=== PATIENT | female | born 1955 | race Caucasian/White ===

== ENCOUNTER 2024-03-24 13:14 | Inpatient (IN) | payer MEDICARE, SELFPAY ==
[2024-03-24] VITALS (61 sets, daily range): BP systolic 85–118; BP diastolic 37–64; PULSE 73–127; RESP 15–41; TEMP 36.2–36.9; O2SAT 90–97
--- NOTE | 2024-03-24 13:15 | RT.EKG_ITS ---
APPROVED REPORT Exam: Resting ECG Reason for Exam: SOB Patient Location: E HR:101 bpm ECG Measurements Heart Rate 101 AXIS VA 108 P 0 QRSd 98 QRS 81 QT 360 T 56 QTc 466 Conclusion Sinus tachycardia 101 No STEMI No interval abnormalities
[2024-03-24 13:50] LABS: BE (Venous) 11 mmol/L (-2-3); HCO3 (Venous) 35 mmol/L (23-28); O2 Sat (Venous) 68 %; TCO2 (Venous) 32 mmol/L (24-29); pCO2 (Venous) 52 mmHg (41-51); pH (Venous) 7.44 (7.31-7.41); pO2 (Venous) 35 mmHg
[2024-03-24 13:53] LABS: Lactate 3.2 mmol/L (0.6-1.4)
--- NOTE | 2024-03-24 13:53 | ED.GENADUL_ITS ---
Discharge Plan Disposition Patient Disposition: Admit to [facility] Condition: Stable Discharge Details Clinical Impression: Acute on chronic hypoxic respiratory failure, Acute kidney injury Primary Care Provider: Arelis Ventura ED Provider: Ilir Giullen [facility] General Date/Time Provider Initiated Documentation: 03/24/24 13:26 . HPI Narrative: 68 year-old female presents to ED today by POV/ambulating, sent [facility] by [facility] with a chief complaint of acute on chronic shortness of breath, low urine output- peed voluntarily this morning, but states she's been on diuretics- concerned about low output despite these meds with onset since this morning- had to increase her baseline oxygen to 4L by NC from her usual 2-3 NC, uses BiPaP at night. Had chemotherapy yesterday for her known oral cancer, reporting dry mouth. Quality described as generalized shortness of breath, denies flank pain, denies abdominal pain, no radiation to crushing chest pain, hemoptysis, fever, intractable nausea/vomiting, flank pain. Severity is described as moderate. Palliating factors include got 3L IVF with chemo yesterday. Provoking factors include nothing specific. 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 Related Data Allergies Allergy/AdvReac Type Severity Reaction Status Date / Time apixaban (From Eliquis) Allergy Intermediate Other (See Verified 03/24/24 13:26 Comment) Sulfa (Sulfonamide Allergy Mild Unknown Verified 03/24/24 13:26 Antibiotics) General Stated Complaint: SOB ADELINA: 3 Review of Systems All systems reviewed & are unremarkable except as noted in HPI and below Exam Narrative Exam Narrative: GENERAL APPEARANCE: Morbidly obese, toxic, awake and alert, atraumatic, mild acute distress. SKIN: Warm, pale, dry, intact, without rashes/lesions/ulcerations. HEAD: Normocephalic, atraumatic, normal hair distribution for gender/age. EYES: Normal conjunctiva, no exudates on lids/lashes. ENT: Nares patent, no circumoral cyanosis, no facial swelling, dry mouth, chapped lips NECK: Supple, trachea midline, painless cervical ROM. LUNGS/CHEST: Difficult auscultation due to body habitus, no wheezing, no rales heard at bases, labored respirations, normal A/P diameter, symmetrical expansion, no chest wall deformity HEART (CV/PV): Regular rate and rhythm without murmur, no peripheral edema, no JVD. ABDOMEN: Soft, non-distended, no guarding, no anterior abdominal tenderness, negative Miller's, no McBurney's point tenderness, non-peritoneal. MSK: Normal ROM, no swelling/deformity to bilateral UEs or LEs, moving all extremities without weakness, no cyanosis, spine midline without tenderness, normal curvature. NEURO: Mental Status AAOx4 - alert to person, place, time, events No facial droop, no forehead involvement. Motor: No focal weakness - strength 5/5 in bilateral UEs and LEs, proximal and distal, symmetric. Sensory: sensation intact to light touch globally. Gait NT, patient has difficulty transferring on her own from wheelchair to stretcher. PSYCH: euthymic, cooperative, pleasant, appropriate speech Course Vital Signs Vital signs: Vital Signs Temperature 36.4 C L 03/24/24 13:18 Pulse 104 H 03/24/24 13:18 Respiratory Rate 26 H 03/24/24 13:18 Blood Pressure 118/54 L 03/24/24 13:18 Pulse Oximetry 93 03/24/24 13:18 Temperature 36.4 C L 03/24/24 13:18 Temperature Source Temporal Artery Scan 03/24/24 13:18 Pulse 104 H 03/24/24 13:18 Respiratory Rate 26 H 03/24/24 13:18 Blood Pressure 118/54 L 03/24/24 13:18 Blood Pressure Position Sitting 03/24/24 13:18 Pulse Oximetry 93 03/24/24 13:18 Oxygen Delivery Method Nasal Cannula 03/24/24 13:18 Oxygen Flow Rate 4 03/24/24 13:18 Lab/Test Results Lab/Test Results: 03/24/24 13:44 Blood Blood Culture - Pending 03/24/24 13:32 Blood Blood Culture - Pending Medical Decision Making This dictation utilizes [id number] dictation software and may contain unedited grammatical errors. 68 year-old female presents to ED today by POV/ambulating, sent for eval by [facility] with a chief complaint of acute on chronic shortness of breath, low urine output- peed voluntarily this morning, but states she's been on diuretics- concerned about low output despite these meds with onset since this morning- had to increase her baseline oxygen to 4L by NC from her usual 2-3 NC, uses BiPaP at night. Had chemotherapy yesterday for her known oral cancer, reporting dry mouth. Quality described as generalized shortness of breath, denies flank pain, denies abdominal pain, no radiation to crushing chest pain, hemoptysis, fever, intractable nausea/vomiting, flank pain. Severity is described as moderate. Palliating factors include got 3L IVF with chemo yesterday. Provoking factors include nothing specific. 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 Patients' medical history: Oral cancer, denies COPD, HOLDEN, morbid obesity, malignant neoplasm of tongue. Family and social history: Lives independently, no exercise regimen, no recent travel, no sick contacts. Pertinent exam findings / vital signs include morbid obesity with no overt wheezing to the lungs, benign cardiac exam, mildly hypotense 91/50-MAP okay, benign abdomen. Differential / pathologies of concern include UTI, dehydration, MEY, renal stone, hypoxic respiratory failure, pneumonia, sepsis. Diagnostic studies of: -CBC, CMP, lactate, UA, PT/PTT, blood cultures, magnesium, troponin, BNP, EKG, XR chest portable, CTA chest PE study (held due to GFR). -CBC shows mild increase in absolute neutrophils at 8.32, immunosuppressed -CMP shows hyponatremia of 133, mildly low hypochloremia at 93, shows significant increase in BUN to 62 with a creatinine of 2.6, yesterday had labs drawn with creatinine of 1.3 -Magnesium within normal limits -Mild increase in LFTs and bilirubin likely in the setting of dehydration -Markedly low albumin at 2.7 -Troponin negative -Lipase negative -Initial lactate is 3.2, procalcitonin pending at time of admission -VBG shows chronic compensated respiratory alkalosis with mildly increased pCO2 at 52, do not suspect need for BiPAP at this time -UA pending and Mulligan is inserted, patient voided earlier today and has 120 mL in the bladder -XR shows possible infiltrate vs edema, running fluids slowly out of caution for flash pulmonary edema -EKG without ischemic dynamic changes Interventions of: -IVF NS @ 150mL / hr, IV Ceftriaxone and azithro for empiric PNA/sepsis coverage in the setting of likely type 2 lactic acidosis, May need PE ruleout once GFR improves with fluids due to active oral cancer. -Admit to Hospitalist Dr. Koo @ 7136 ED Course/Assessment/Plan: Morbidly obese 68-year-old female presents with acute on chronic respiratory failure, immune suppressed with a mild elevation of absolute neutrophil count and elevated lactate for possible sepsis/suspected possible pneumonia versus UTI, patient received chemo yesterday and 3 L of fluid but has been on diuretics, has MEY with a creatinine from 1.3-2.6 today, chest x-ray shows some infiltrate versus edema running fluids slowly instead of on sepsis bolus protocol to prevent any further respiratory complications from flash pulmonary edema. He her fluid balance and MEY would likely resolve but will take some time warranting admission for acute kidney injury, she does use BiPAP at night. Received IV ceftriaxone and azithromycin for empiric pneumonia coverage, may need a CTA of the chest as she is tachycardic at this time but has a GFR that prevents contrast administration currently this would likely improve tomorrow. I spoke with Dr. Koo about admitting the patient who accepted for admission graciously. Findings not consistent with ACS, severe sepsis with septic shock. Disposition of Acute on Chronic Hypoxic Respiratory Failure, Acute Kidney Injury. Patient verbalized understanding of the plan and return to ED criteria and engaged in shared decision making. Medical Records Medical records reviewed: Yes I reviewed the patient's medical records. Imaging Data Radiologic Study: Attestation: I personally reviewed and interpreted this imaging study as follows: Imaging: X-Ray My impression: Pending at time of admission Lab Data Lab results reviewed: Yes I reviewed the patient's lab results. Labs: 03/24/24 14:07 Blood Blood Culture - Pending 03/24/24 13:44 Blood Blood Culture - Pending Laboratory Tests Range/Units 03/24/24 13:44 WBC (4.4-10.8) 10^3/uL 8.95 RBC (3.93-5.22) 10^6/uL 4.01 Hgb (11.2-15.7) g/dL 12.4 Hct (36.0-46.0) % 39.5 MCV (80-95) fL 99 H MCH (27.0-33.0) pg 30.9 MCHC (32.0-36.0) % 31.4 L RDW (11.7-14.6) % 15.3 H Plt Count (130-400) 10^3/uL 130 MPV (8.0-11.0) fL 10.6 Immature Gran % % 1.0 Neutrophils % % 93.0 Lymphocytes % % 0.6 Monocytes % % 3.9 Eosinophils % % 1.3 Basophils % % 0.2 Nucleated RBC % (0.0-0.3) % 0.0 Absolute Neutrophils (1.2-6.7) 10^3/uL 8.32 H Absolute Lymphocytes (1.2-3.4) 10^3/uL 0.05 L Absolute Monocytes (0.1-0.8) 10^3/uL 0.35 Absolute Eosinophils (0.0-0.7) 10^3/uL 0.12 Absolute Basophils (0.0-0.2) 10^3/uL 0.02 VBG pH (7.31-7.41) 7.44 H VBG pCO2 (41-51) mmHg 52 H VBG pO2 mmHg 35 VBG HCO3 (23-28) mmol/L 35 H VBG Total CO2 (24-29) mmol/L 32 H VBG O2 Saturation % 68 VBG Base Excess (-2-3) mmol/L 11 H VBG Lactate (0.6-1.4) mmol/L 3.2 H* Sodium (136-145) mmol/L 133 L Potassium (3.5-5.1) mmol/L 4.6 D Chloride (98-107) mmol/L 93 L Carbon Dioxide (21.0-32.0) mmol/L 33.0 H Anion Gap (3-11) mmol/L 7.0 BUN (7-18) mg/dL 62 H Creatinine (0.55-1.02) mg/dL 2.6 H D Est GFR (CKD-EPI 2020) (mL/min/1.73m2) 19.50 Glucose (74-106) mg/dL 129 H Calcium (8.5-10.1) mg/dL 8.7 Magnesium (1.8-2.4) mg/dL 2.4 Total Bilirubin (0.2-1.0) mg/dL 2.01 H AST (15-37) U/L 68 H ALT (14-59) U/L 68 H Alkaline Phosphatase (46-116) U/L 46 Troponin I (<or=51) ng/L 45 Total Protein (6.4-8.2) g/dL 7.1 Albumin (3.4-5.0) g/dL 2.7 L Lipase (<78) U/L 50 Quality:[facility] Health Related Social Needs: No Data to Display PFSH All Active Problems (Updated 03/24/24 @ 14:53 by AISSATOU Mcgowan) Acute kidney injury (Acute) Acute on chronic hypoxic respiratory failure (Acute) Social History Smoking/Tobacco Use Status: Never Smoking risk assessment performed?: Yes Alcohol Intake: never Drug use: Never Substance use type: does not use
[2024-03-24 13:54] LABS: Abs Immature Grans 0.09 10^3/uL (0.0-0.06); Absolute Basophil Count 0.02 10^3/uL (0.0-0.2); Absolute Eosinophil Count 0.12 10^3/uL (0.0-0.7); Absolute Lymphocyte Count 0.05 10^3/uL (1.2-3.4); Absolute Monocyte Count 0.35 10^3/uL (0.1-0.8); Absolute Neutrophil Count 8.32 10^3/uL (1.2-6.7); Basophils % 0.2 %; Eosinophils % 1.3 %; HCT 39.5 % (36.0-46.0); HGB 12.4 g/dL (11.2-15.7); Lymphocytes % 0.6 %; MCH 30.9 pg (27.0-33.0); MCHC 31.4 % (32.0-36.0); MCV 99 fL (80-95); MPV 10.6 fL (8.0-11.0); Monocytes % 3.9 %; Platelet Count 130 10^3/uL (130-400); RBC 4.01 10^6/uL (3.93-5.22); RDW 15.3 % (11.7-14.6); RDW-SD 55.8 fL; WBC 8.95 10^3/uL (4.4-10.8)
[2024-03-24 14:11] LABS: ALT 68 U/L (14-59); AST 68 U/L (15-37); Albumin 2.7 g/dL (3.4-5.0); Alkaline Phosphatase 46 U/L (46-116); BUN 62 mg/dL (7-18); Bilirubin, Total 2.01 mg/dL (0.2-1.0); CREATININE 2.6 mg/dL (0.55-1.02); Calcium 8.7 mg/dL (8.5-10.1); Chloride 93 mmol/L (98-107); Glucose 129 mg/dL (74-106); Lipase 50 U/L (<78); Magnesium 2.4 mg/dL (1.8-2.4); Potassium 4.6 mmol/L (3.5-5.1); Sodium 133 mmol/L (136-145); Total Protein 7.1 g/dL (6.4-8.2); Troponin I 45 ng/L (<or=51)
--- NOTE | 2024-03-24 14:30 | DI.RAD_ITS ---
Exam(s) XR PORTABLE CHEST AP EXAM: XR PORTABLE CHEST AP CLINICAL HISTORY: cough TECHNIQUE: 2D digital imaging was performed. COMPARISON: No exams were available for comparison FINDINGS: Exam is extremely limited by motion and under penetration. Abdominal soft tissues partially obscure the lung bases. LUNGS: Clear. No pleural abnormality seen. HEART: Partially obscured AORTA: Normal diameter. BONES: Unremarkable for age. Soft tissues: Overlying monitoring leads. IMPRESSION: Extremely limited exam. No gross evidence acute findings. DATA REPOSITORY: RADIATION DOSE DELIVERED:
[2024-03-24 14:57] LABS: COVID-19 PCR Negative (Negative); Influenza A PCR Negative (Negative); Influenza B PCR Negative (Negative); RSV PCR Negative (Negative)
[2024-03-24] MEDS: AZITHROMYCIN 500 MG in Normal Saline 250 ML 250 MG IVPB (15:02)
[2024-03-24] MEDS: Lidocaine 2% Jelly 6 ML SYR (15:03)
[2024-03-24] MEDS: cefTRIAXone 1 GM/50 ML BAG IVPB (15:03)
--- OUTSIDE RECORDS SUMMARY | 2024-03-24 15:04 | XMS_ITS | Referral Summary ---
Author Organization [facility] Address [address] [place] [id number] Care Team Providers Care Mortician Helper Name Role Phone Stacey Cuellar Primary Care Provider Social History Tobacco Use Types Packs/Day Years Used Date Smoking Tobacco: Never Assessed Comments Unknown Sex and Gender Information Value Date Recorded Sex Assigned at Not on file Legal Sex Female 18:48 EST Gender Identity Not on file Sexual Orientation Not on file Plan of Treatment Not on file Insurance [employer] Care Teams Mortician Helper Relationship Specialty Start Date End Date Stacey Cuellar ARNP [address] [place] [address] PCP - General 10/19/15
--- OUTSIDE RECORDS SUMMARY | 2024-03-24 15:04 | XMS_ITS | Encounter Summary ---
Author Organization [facility] Address [address] [place] [address] Care Team Providers Care Casing Puller Name Role Phone Unknown, Provider Primary Care Provider Unava ilable Encounter Details Date Type Department Care Team (Late st Contact Info) Description 03/01/2010 Results Only [facility] [address] [place] [address] Ari Cuellar ARNP [address] [place] [address] Social History Tobacco Use Types Packs/Day Years Used Date Smoking Tobacco: Never Assessed Comments Unknown Sex and Gender Information Value Date Recorded Sex Assigned at Not on file Legal Sex Female 18:48 EST Gender Identity Not on file Sexual Orientation Not on file documented as of this encounter Plan of Treatment Not on file documented as of this encounter Procedures Procedure Name Priority Date/Time Associated Diagnosis Comments SURGICAL PATHOLOGY Routine 03/01/2010 0:00 EST documented in this encounter Results * SURGICAL PATHOLOGY (03/01/2010 0:00 EST) Pathology Report: SURGICAL PATHOLOGY REPORT ? Reports generated via electronic interface contain original data; ? however they are lacking the format of the original report. ? Caution should be taken when reading/interpreti ng unformatted reports. ? Name: ? ISAIAS, PENNY A ? Accession #: ? [id number] ? : ? 1955 (Age: 54) ??F ? Collect Date: ? 03/01/2010 ? Location: ? [facility] ? Receive Date: ? 03/03/2010 ? Provider: ARI KELLER ? Copy to: ? Final Pathologic Diagnosis: ? Skin of thumb, right, shave biopsy: ? - Pyogenic granuloma. ? Microscopic Description: ? There is a papule formed by a dermal proliferation of vascular channels ? associated with an edematous and inflamed stroma. ??The vessels are lined by ? hypertrophic endothelial cells and there is mural swelling. ??The overlying ? epidermis is ulcerated. ??(Dr. Fu)/[facility] ? Document reviewed and electronically signed by: ? WAQAS FU MD ? Report ??Date: 03/06/2010 13:47 ? By the signature above, the attending physician certifies that he/she has ? personally conducted a gross and/or microscopic examination of the described ? specimens and rendered or confirmed the above diagnosis. ? Specimen(s) Received: ? Right thumb growth ? Clinical History: ? R/O pyogenic granuloma ? Gross Description: ? Received in formalin labelled Courteau, Penny and R thumb is an ? irregular, slightly ragged mccarthy-brown nodule measuring 0.7 x 0.6 x 0.3 cm. ??The ?? specimen is trisected and submitted entirely in one cassette. ? (A. Cramer)/mpl ? End of Report ? ANGELICA CISSE 03/01/2010 03/03/2010 9:5 2 EST us Ari KELLER PATHOLOGY ORDERABLES Final Result [facility] [address] [place] [address] documented in this encounter Visit Diagnoses Not on filedocumented in this encounter Care Teams Casing Puller Relationship Specialty Start Date End Date Unknown, Provider, PCP - General 07/05/09 10/18/15 documented as of this encounter
--- OUTSIDE RECORDS SUMMARY | 2024-03-24 15:04 | XMS_ITS | Encounter Summary ---
Author Organization Health system Address [address] [place] [address] Care Team Providers Care Missing Persons Investigator Name Role Phone Unknown, Provider Primary Care Provider Unava ilable Encounter Details Date Type Department Care Team (Late st Contact Info) Description 10/13/2015 Results Only [facility]- [facility] [phone] Petar Clark MD [address] [facility] [address] [place] [address] Social History Tobacco Use Types Packs/Day Years [...] Date/Time Associated Diagnosis Comments SURGICAL PATHOLOGY Routine 10/13/2015 10 :38 EDT documented in this encounter Results * SURGICAL PATHOLOGY (10/13/2015 10:38 EDT) Pathology Report: SURGICAL PATHOLOGY REPORT Reports generated via electronic interface contain original data; however they are lacking the format of the original report. Caution should be taken when reading/interpret ing unformatted reports. Name: ? REY RUSSO ? Accession #: ? [id number] ? : ? 1955 (Age: 60) ??F ? Collect Date: ? 10/13/2015 ? Location: ? [facility] ? Receive Date: ? 10/15/2015 ? Provider: ANDREA CLARK MD Copy to: ARI PATHAKP ? Final Pathologic Diagnosis: A. ??DUODENUM, 2ND PORTION, BIOPSY: - Duodenal mucosa with no specific pathologic features. B. ??STOMACH, ANTRUM AND BODY, BIOPSY: - Gastric antral and body mucosa with no specific pathologic features. C. ??ESOPHAGUS, DISTAL, BIOPSY: - Squamocolumnar junctional mucosa with reflux esophagitis. - Negative for intestinal metaplasia; Negative for dysplasia. D. ??COLON, ASCENDING, POLYP, BIOPSY: - Inflammatory polyp (polypoid active colitis) with surface erosion. - Negative for dysplasia. ?? Document reviewed and electronically signed by: XU MAYERS MD Report ??Date: 10/18/2015 16:36 By the signature above, the attending physician certifies that he/she has personally conducted a gross and/or microscopic examination of the described specimens and rendered or confirmed the above diagnosis. Specimen(s) Received: A. ??2nd portion duodenum B. ??Antrum and body C. ??Distal esophagus D. ??5.0 mm polyp ascending Clinical History: Gastritis, esophagitis; clinical diagnosis code: ??Z12.11, D50.0 Gross Description: A. ?Received in formalin labelled with proper patient identification (initials C, J) and A. 2nd portion duodenum are two mccarthy-yellow tissues (0.2 x 0.2 x 0.3 cm and 0.2 x 0.2 x 0.3 cm). Entirely submitted in A1. B. ?Received in formalin labelled with proper patient identification (initials C, J) and B. antrum and body are four mccarthy-yellow tissues (from 0.1 x 0.1 x 0.1 cm to 0.1 x 0.1 x 0.3 cm). Entirely submitted in B1 and B2. C. ?Received in formalin labelled with proper patient identification (initials C, J) and C. distal esophagus are two mccarthy-white tissues (0.1 x 0.2 x 0.3 cm and 0.1 x 0.2 x 0.5 cm). Entirely submitted in C1. D. ?Received in formalin labelled with proper patient identification (initials C, J) and D. 5.0 mm polyp ascending are three mccarthy-yellow tissues (0.1 x 0.2 x 0.2 cm, 0.2 x 0.2 x 0.2 cm and 0.3 x 0.3 x 0.5 cm). The largest piece is bisected. Entirely submitted in D1 and D2. Pebbles Wilkins 10/17/2015 12:10 PM End of Report [facility] 10/13/2015 10:3 8 EDT 10/15/2015 10:38 EDT us Petar Clark MD PATHOLOGY ORDERABLES Final Resul t [facility] [address] [place] [address] documented in this encounter Visit Diagnoses Not on filedocumented in this encounter Care Teams Missing Persons Investigator Relationship Specialty Start Date End Date Unknown, Provider, PCP - General 07/05/09 10/18/15 documented as of this encounter
--- OUTSIDE RECORDS SUMMARY | 2024-03-24 15:04 | XMS_ITS | Encounter Summary ---
Author Organization [facility] Address [address] [place] [address] Care Team Providers Care Group Insurance Special Agent Name Role Phone Ari Cuellar ARIANNA Primary Care Provider Encounter Details Date Type Department Care Team (Late st Contact Info) Description 03/01/2016 Results Only [facility]- [facility] [phone] Josep Saenz MD [address] [place], [place] [id number] Social History Tobacco Use Types Packs/Day Years [...] Date/Time Associated Diagnosis Comments SURGICAL PATHOLOGY Routine 03/01/2016 21 :53 EST documented in this encounter Results * SURGICAL PATHOLOGY (03/01/2016 21:53 EST) Pathology Report: SURGICAL PATHOLOGY REPORT Reports generated via electronic interface contain original data; however they are lacking the format of the original report. Caution should be taken when reading/interpreting unformatted reports. Name: ? FLETCHER RUSSO ? Accession #: ? [id number] ? : ? 1955 (Age: 60) ??F ? Collect Date: ? 03/01/2016 ? Location: ? [facility] ? Receive Date: ? 03/01/2016 ? Provider: JOSEP SAENZ MD Copy to: ARI KELLER ? Final Pathologic Diagnosis: ENDOMETRIUM, CURETTTAGE: - ??Simple hyperplasia without atypia. See comment. - ??Endocervical polyp. Comment: ? Marine Designer slides of this case were reviewed at the intradepartmental consultation conference. ?? Document reviewed and electronically signed by: KATIE MORRIS MD Report ??Date: 03/06/2016 17:00 By the signature above, the attending physician certifies that he/she has personally conducted a gross and/or microscopic examination of the described specimens and rendered or confirmed the above diagnosis. Specimen(s) Received: Endometrial curettings Clinical History: Postmenopausal bleeding; LMP: menopause; clinical diagnosis code: N95.0 Gross Description: ? Received in formalin labelled with proper patient identification (initials C, J) and endometrial curettings is red-brown hemorrhage and mucus (3.0 x 2.0 x 0.5 cm). The specimen is submitted entirely in 1 and 2. AISSATOU Ozuna (ASCP) 03/02/2016 11:16 AM End of Report [facility] 03/01/2016 21:5 3 EST 03/01/2016 21:53 EST us Josep Saenz MD PATHOLOGY ORDERABLES Final Resu lt [facility] [address] [place] [address] documented in this encounter Visit Diagnoses Not on filedocumented in this encounter Care Teams Group Insurance Special Agent Relationship Specialty Start Date End Date Ari Cuellar ARNP [address] [place] [address] PCP - General 10/19/15 documented as of this encounter
--- OUTSIDE RECORDS SUMMARY | 2024-03-24 15:04 | XMS_ITS | Encounter Summary ---
Author Organization [facility] Address [address] [place] [address] Care Team Providers Care Trauma Program Manager Name Role Phone Stacey Cuellar Primary Care Provider Encounter Details Date Type Department Care Team (Late st Contact Info) Description 11/13/2023 Lab Requisition [facility] Pathology & Laboratory Medicine - [facility] [address] [place] [address] Morales Choudhary, [address] [place] [address] Other diseases of tongue Social History Tobacco Use Types Packs/Day Years [...] Priority Date/Time Associated Diagnosis Comments SURGICAL PATHOLOGY Today 11/12/2023 10 :40 EDT Other diseases of tongue documented in this encounter Results * SURGICAL PATHOLOGY (11/12/2023 10:40 EDT) Note to Patient The following pathology results have been interpreted by your pathologist and may be available to you before your health provider has had the opportunity to review them. Please allow time for your provider to receive these results and explore management options, if applicable. 11/15/2023 9:50 EDT [facility] Final Diagnosis A. TONGUE, RIGHT POSTERIOR LATERAL INFERIOR, BIOPSY: - Invasive squamous cell carcinoma, well-differentiate d, keratinizing type. B. TONGUE, RIGHT POSTERIOR LATERAL TONGUE SUPERIOR, BIOPSY: - Invasive squamous cell carcinoma, well-differentiate d, keratinizing type. - Depth of invasion at least 5.0 mm 11/15/2023 9:50 [facility] Diagnosis Comment Preliminary diagnosis of squamous cell carcinoma with morphology that is not suggestive of HPV-associated squamous cell carcinoma relayed to Eula Owusu, Dr. Choudhary's diagnostic medical sonographer, by Dr. Gómez De Los Santos on 11/14/23 09:26. Immunoperoxidase stains were performed on this case to further characterize the lesion. ANTIBODY(CLONE)(BL OCK):RESULT P16 (E6H4TM, [place]) (B1): Negative NOTE: One or more of the reagents used in immunoperoxidase testing in this case may not have been cleared or approved by the U.S. Food and Drug Administration (FDA). The FDA has determined that such clearance or approval is not necessary. These tests are used for clinical purposes. They should not be regarded as investigational or for research. These reagents' performance characteristics have been determined by [facility] and/or by the referring laboratory. The positive and negative controls worked appropriately. If immunoperoxidase staining has been performed on alcohol fixed cytology specimens, which has not been fully validated, the assays should be interpreted with caution and correlated with clinical data. This laboratory is certified under the Clinical Laboratory Improvement Amendments of 1988 (CLIA-88) as qualified to perform high complexity clinical laboratory testing. 11/15/2023 9:50 [facility] Attestation There was significant resident/fellow involvement in the diagnostic evaluation of this case. By the signature below, the attending physician certifies that they have personally conducted a gross and/or microscopic examination of the described specimens and rendered or confirmed the above diagnosis. 11/15/2023 9:50 [facility] at 0950 Clinical History Clinical diagnosis code: K14.8 11/15/2023 9:50 [facility] Gross Description A. Received in normal formalin labelled with proper patient identification (initials C, J) and right posterior lateral tongue inferior are three pieces of mccarthy-andrade rubbery tissue (ranges from 0.1 x 0.1 x 0.1 cm to 0.4 x 0.3 x 0.1 cm). The specimen entirely submitted intact in A1. B. Received in formalin labelled with proper patient identification (initials C, J) and right posterior lateral tongue superior multiple pieces of mccarthy-pink rubbery tissue (ranges from 0.1 x 0.1 x 0.1 cm to 0.4 x 0.3 x 0.2 cm). The specimen entirely submitted intact in B1. ALENA LUCAS MD 11/13/2023 17:10 11/15/2023 9:50 EDT [facility] Resident/Roque w: Alena Lucas MD Boles, Lindsey Jones MD 11/15/2023 9:50 EDT [facility] Performing Lab [facility] 9:50 EDT [facility] Scanned Images 11/15/2023 9:50 EDT [facility] Tissue TONGUE STRUCTURE / Unknown 11/12/2023 10:40 EDT 11/13/2023 16:57 EDT Tissue specimen (specimen) TONGUE STRUCTURE / Unknown 11/12/2023 10:40 EDT 11/13/2023 16:57 EDT us Morales Choudhary DO PATHOLOGY ORDERABLES Fi nal Result [facility] [address] [place] [id number] documented in this encounter Visit Diagnoses Diagnosis Other diseases of tongue documented in this encounter Care Teams Trauma Program Manager Relationship Specialty Start Date End Date Stacey Cuellar ARNP [address] [place] [address] PCP - General 10/19/15 documented as of this encounter
--- OUTSIDE RECORDS SUMMARY | 2024-03-24 15:04 | XMS_ITS | Encounter Summary ---
Author Organization [facility] Address [address] [place] [address] Care Team Providers Care Delivery And Mail Sorter Name Role Phone Unknown, Provider Primary Care Provider Unava ilable Encounter Details Date Type Department Care Team (Late st Contact Info) Description 06/30/2009 Results Only [facility] Services - [facility] [place] [address] [place], [place] [id number] Ari Cuellar ARNP [address] [place] [address] Social History Tobacco Use Types [...] Procedure Name Priority Date/Time Associated Diagnosis Comments HPV DETECTION, HIGH RISK TYPES Routine 06/30/2009 8:42 EDT CYTOPATHOLOGY Routine 06/30/2009 0:00 EDT documented in this encounter Results * HUMAN PAPILLOMA VIRUS DNA TEST (06/30/2009 8:42 EDT) Specimen Description Cervix, ThinPrep vial [facility] Result Negative for HPV types 16, 18, 31, 33, 35, 39, 45, 51, 52, 56, 58, 59, and 68. [facility] Report Status Final 07/14/2009 [facility] 06/30/2009 8:42 EDT 07/12/2009 8:42 EDT us Ari KELLER MICROBIOLOGY - GENERAL GERIAdi SANCHEZ Final Result [facility] [address] [place] [address] * CYTOPATHOLOGY (06/30/2009 0:00 EDT) Pathology Report: CYTOPATHOLOGY REPORT ? Reports generated via electronic interface contain original data; ? however they are lacking the format of the original report. ? Caution should be taken when reading/interpreti ng unformatted reports. ? Name: ? REY RUSSO ? Accession #: ? [id number] ? : ? 1955 (Age: 53) ??F ?Collect Date: ? 06/30/2009 ? Location: ? [facility] ? Receive Date: ? 07/05/2009 ? Provider: ?ARI FISCHLER BEATER ENGINEER ? Copy to: ? Specimen/Source: ?Pap Test, Cervix/Endocervix, ThinPrep Imaging System ? with manual evaluation ? Last Menstrual Period: ? 2002 ? Other: ? HPVDX - HPV testing requested regardless of diagnosis on current ThinPrep Pap ?? test. ? SPECIMEN ADEQUACY ? Satisfactory for Evaluation ? - transformation zone component absent ? GENERAL CATEGORIZATION ? Negative for Intraepithelial Lesion or Malignancy ? Document reviewed and electronically signed by: ? Lynan Murtaza, CT(ASCP) ? Report Date: ??07/11/2009 16:05 ? End of Report ? [facility] 06/30/2009 07/05/2009 Ari KELLER PATHOLOGY ORDERABLES Final Result [facility] [address] [place] [address] documented in this encounter Visit Diagnoses Not on filedocumented in this encounter Care Teams Delivery And Mail Sorter Relationship Specialty Start Date End Date Unknown, Provider, PCP - General 07/05/09 10/18/15 documented as of this encounter
--- OUTSIDE RECORDS SUMMARY | 2024-03-24 15:04 | XMS_ITS | Encounter Summary ---
Author Organization [facility] Address [address] [place] [address] Care Team Providers Care Flower Arranger Name Role Phone Unknown, Provider Primary Care Provider Unava ilable Encounter Details Date Type Department Care Team (Latest Contact Info) Description 10/13/2015 8:41 EDT - 10/13/2015 23:59 EDT Hospital Encounter [address] [address] Unknown, Provider, Discharge Disposition: Home or Self Care Social History Tobacco Use Types Packs/Day Years Used Date Smoking Tobacco: Never Assessed Comments Unknown Sex and Gender Information Value Date Recorded Sex Assigned at Not on file Legal Sex Female 18:48 EST Gender Identity Not on file Sexual Orientation Not on file documented as of this encounter Discharge Disposition Disposition Code Departure Means Destination Home or Self Mcfp documented in this encounter Plan of Treatment Not on file documented as of this encounter Visit Diagnoses Not on filedocumented in this encounter Care Teams Flower Arranger Relationship Specialty Start Date End Date Unknown, Provider, PCP - General 07/05/09 10/18/15 documented as of this encounter
--- OUTSIDE RECORDS SUMMARY | 2024-03-24 15:04 | XMS_ITS | Clinical Summary ---
Author Organization [facility] Address [address] [place] [id number] Care Team Providers Care Java Mobile Developer Name Role Phone Stacey Cuellar Primary Care Provider Social History Tobacco Use Types Packs/Day Years Used Date Smoking Tobacco: Never Assessed Comments Unknown Sex and Gender Information Value Date Recorded Sex Assigned at Not on file Legal Sex Female 18:48 EST Gender Identity Not on file Sexual Orientation Not on file Plan of Treatment Health Maintenance Due Date Last Done Comments Hepatitis C Screen 1955 Fall Risk Screening 07/20/2020 COVID-19 Vaccine (2023-25 season) 2023 RSV Immunization ( o r 60+ Years) (1 - 1-dose 75+ series) 07/20/2030 Insurance [place] [employer] Care Teams Java Mobile Developer Relationship Specialty Start Date End Date Stacey Cuellar ARNP [address] [place] [id number] PCP - General 10/19/15
[2024-03-24 15:06] LABS: Source Nasopharynx
--- NOTE | 2024-03-24 15:12 | W.PM.HP.N ---
Date of service: 03/24/24 Time of Service: 16:50 Assessment and Plan Assessment and plan (1) Anuria: Status: Acute Assessment and plan: -Based on patient's estimate of urine output of 50 cc earlier in the day, an additional 20 cc in the emergency department, it is estimated that she has had >0.1cc/kg/hr of urine output over the last 12 hours which categorizes her as an uric kidney failure -Normal saline that was ordered by emergency room provider has been discontinued and not given -Ordered 120 mg IV Lasix; will monitor patient's urine output very closely -Will recalculate patient's cc/kg/hr 3 hours after Lasix is given -Depending on total urine output and cc/kg/hr and total urine output at that time, will reach out to [facility] for other consultation with nephrology on guidance for additional diuresis, or consideration potential transfer and need for dialysis -Additionally, will also reach out earlier to [facility] should patient's respiratory status worsen regardless of urine output (2) Acute on chronic hypoxic respiratory failure: Status: Acute Assessment and plan: -Secondary to anuria as noted above (3) Acute kidney injury superimposed on CKD: Status: Acute Assessment and plan: - Secondary to anuria as noted above (4) Head and neck cancer: Status: Acute Assessment and plan: - At this time, unknown if patient's chemo/radiation therapy has had a direct effect on patient's kidneys, or has resulted in new or worsening heart failure resulting in kidney failure -After acute hospitalization, patient will need to have discussion with her oncologist regarding chemotherapy regimen going forward (5) Lactic acid acidosis: Status: Acute Assessment and plan: - Lactic acid 3.2, Likely secondary to combination of anuria, and chemotherapy as noted above (6) Elevated LFTs: Status: Acute Assessment and plan: - May be secondary to some combination of other hepatic congestion and/or chemotherapy -Total bili 2 (was 1.524 hours prior), AST and ALT also elevated as compared to 24 hours prior History of Present Illness History of Present Illness Chief Complaint: shortness of breath Narrative: 68-year-old female with a past medical history of lower extremity pressure ulcers, morbid obesity, chronic hypoxic respiratory failure normally on 2 to 3 L nasal cannula, active head and neck cancer for which she is receiving chemotherapy and radiation who presents to the emergency department complaints of shortness of breath and decreased urine output. Patient presented to the emergency department as she stated that she has had increased shortness of breath and increased oxygen requirement over the last few days. She states she is normally on 2 to 3 L nasal cannula that she had to increase to 4 L. Additionally, she states that despite having increased her diuretic use of her Bumex she urinated only once earlier in the day about 50 cc and has not urinated since. She is also complaining of increased shortness of breath when laying flat, requiring her to lay in a reclined position, and episodes of pursed lip breathing and shortness of breath at rest. She denies any fevers, lightheadedness, dizziness, chest pain, nausea vomiting or diarrhea. In the emergency department the patient was noted as having blood pressures in the high 90s to low 100s systolics, heart rate in the mid 80s, respiratory rate in the low 20s, was saturating 93% on 4 L nasal cannula. Upon physical exam patient looked significantly fluid overloaded with worsening bilateral lower extremity weeping edema, and diminished breath sounds with crackles throughout. Her CBC was unremarkable and without leukocytosis, but her be MP did show creatinine of 2.6 (increased from 24 hours prior which was 1.3, as well as an increase in BUN up to 62, increase of total bili from 1.5-2, and a proBNP of 6635. Despite the information from the patient and objective laboratory evidence and patient's physical exam, emergency room PA thought patient was having an acute kidney injury and pneumonia (despite no chest x-ray having been ordered at the time), and ordered ceftriaxone, azithromycin and 1 L normal saline (normal saline was not given due to high suspicion for fluid overload by emergency room nurse). At this point I personally assessed the patient and determined that there is a high likelihood of her being in anuric kidney failure given her fluid overload, orthopnea, acute on chronic hypoxic respiratory failure, objective physical exam findings to suggest fluid overload, and minimal urine output (at this time patient had Mulligan catheter placed by emergency room nurse and patient had about 20 cc of urine). At this point decision was made for patient to be admitted to the ICU and has had 120 mg IV Lasix ordered where we will be able to monitor her urine output and her respiratory status. Review of Systems All systems reviewed & are unremarkable except as noted in HPI and below PFSH All Active Problems (Updated 03/24/24 @ 17:14 by Colten Koo MD) Elevated LFTs (Acute) Lactic acid acidosis (Acute) Anuria (Acute) Oliguria (Acute) Head and neck cancer (Acute) Acute kidney injury superimposed on CKD (Acute) Acute kidney injury (Acute) Acute on chronic hypoxic respiratory failure (Acute) Social History Smoking/Tobacco Use Status: Never Smoking risk assessment performed?: Yes Alcohol Intake: never Drug use: Never Substance use type: does not use Housing: house Meds Allergies and Home Medications Allergies Allergy/AdvReac Type Severity Reaction Status Date / Time apixaban (From Eliquis) Allergy Intermediate Other (See Verified 03/24/24 13:26 Comment) Sulfa (Sulfonamide Allergy Mild Unknown Verified 03/24/24 13:26 Antibiotics) Home Medications ?Medication ?Instructions ?Recorded ?Confirmed ?Type allopurinol 100 mg tablet 200 mg PO DAILY 03/24/24 03/24/24 History bumetanide 0.5 mg tablet 1 mg PO BID 03/24/24 03/24/24 History diltiazem HCl 120 mg 120 mg PO QAM 03/24/24 03/24/24 History capsule,extended release 24 hr (Cartia XT) lidocaine HCl 2 % mucosal solution 03/24/24 History megestrol 40 mg tablet mg PO QID 03/24/24 History nystatin 100,000 unit/gram topical 1 applic topical PRN 03/24/24 History powder (Nyamyc) olanzapine 5 mg tablet mg 03/24/24 History oxycodone 5 mg tablet 5 mg PO Q4H PRN 03/24/24 03/24/24 History potassium chloride 10 mEq 10 meq PO DAILY 03/24/24 03/24/24 History tablet,extended release warfarin 2.5 mg tablet 2.5 mg 03/24/24 History Exam Narrative Exam Narrative: Morbidly obese female laying in bed in mild respiratory distress, ANO x 4, [address] L nasal cannula in place, heart regular rate rhythm, lungs diminished in bilateral bases with crackles throughout, abdomen obese, soft, nontender, nondistended, significant acute on chronic lower extremity now +3-4 pitting and weeping edema to the mid thigh Results Labs 03/24/24 13:44 03/24/24 13:44 Labs: Laboratory Results - last 24 hr 03/24/24 03/24/24 13:39 13:44 WBC 8.95 RBC 4.01 Hgb 12.4 Hct 39.5 MCV 99 H MCH 30.9 MCHC 31.4 L RDW 15.3 H Plt Count 130 MPV 10.6 Immature Gran % 1.0 Neutrophils % 93.0 Lymphocytes % 0.6 Monocytes % 3.9 Eosinophils % 1.3 Basophils % 0.2 Nucleated RBC % 0.0 Absolute Neutrophils 8.32 H Absolute Lymphocytes 0.05 L Absolute Monocytes 0.35 Absolute Eosinophils 0.12 Absolute Basophils 0.02 VBG pH 7.44 H VBG pCO2 52 H VBG pO2 35 VBG HCO3 35 H VBG Total CO2 32 H VBG O2 Saturation 68 VBG Base Excess 11 H VBG Lactate 3.2 H* Sodium 133 L Potassium 4.6 D Chloride 93 L Carbon Dioxide 33.0 H Anion Gap 7.0 BUN 62 H Creatinine 2.6 H D Est GFR (CKD-EPI 2020) 19.50 Glucose 129 H Calcium 8.7 Magnesium 2.4 Total Bilirubin 2.01 H AST 68 H ALT 68 H Alkaline Phosphatase 46 Troponin I 45 Total Protein 7.1 Albumin 2.7 L Lipase 50 COVID-19 Source Nasopharynx SARS-CoV-2 (PCR) Negative Influenza Type A (PCR) Negative Influenza Type B (PCR) Negative RSV (PCR) Negative Last Vital Signs Temp 97.5 F L 03/24/24 13:18 Pulse 101 H 03/24/24 14:46 Resp 17 03/24/24 14:50 BP 100/59 L 03/24/24 14:46 Pulse Ox 94 03/24/24 14:50 Time Spent Time spent with Patient: >75 minutes Time was spent: preparing to see the patient(eg.review tests), obtaining and/or reviewing separately otained hiistory, ordering medications,tests, procedures, referring, communicating with other health home care scheduler, indepentently interpreting results, counseling the patient and care coordination
--- NOTE | 2024-03-24 15:57 | W.PC.ACHO ---
Registration Status: Primary Language: Preferred Language: ED Information & Data Chief Complaint SOB 03/24/24 13:54 Triage Note Pt sent from cancer center 03/24/24 13:18 for new SOB and decreased urine output despite diuretics. States has not peed since this morning. Pt wears a pad. BSL 2-3L, new requirement for 4L NC. Pt SOB at rest and with exertion. Being treated with chemo and radiation for head and neck cancer. Pt reports mouth pain. Per cancer center pt gets 2 or 3 L of IVF with treatment . Did not receive treatment today for got it yesterday. has R chest port, currently accessed from cancer center. Most Recent Vital Signs Temperature 36.4 C L 03/24/24 13:18 Temperature Source Temporal Artery Scan 03/24/24 13:18 Pulse 101 H 03/24/24 14:46 Pulse 97 H 03/24/24 14:50 Respiratory Rate 17 03/24/24 14:50 Respiratory Effort Short of Breath, Pursed Lip 03/24/24 13:56 Respiratory Depth Shallow 03/24/24 13:56 Respiratory Pattern Tachypnea 03/24/24 13:56 Blood Pressure 100/59 L 03/24/24 14:46 Blood Pressure Mean 71 03/24/24 14:46 Blood Pressure Position Sitting 03/24/24 13:18 Pulse Oximetry 94 03/24/24 14:50 Oxygen Delivery Method Nasal Cannula 03/24/24 13:18 Oxygen Flow Rate 4 03/24/24 13:18 Allergies apixaban (From Eliquis) Allergy (Intermediate, Verified 03/24/24 13:26) Other (See Comment) petechia Sulfa (Sulfonamide Antibiotics) Allergy (Mild, Verified 03/24/24 13:26) Unknown Precautions Isolation Protective precaution 03/24/24 13:26 IV IV Catheter Type [Proximal Port-a-cath (single) Port] IV Catheter Gauge [Proximal 18 Port] Diagnostics 03/24/24 03/24/24 03/24/24 Range/Units 15:16 14:52 14:51 WBC (4.4-10.8) 10^3/uL RBC (3.93-5.22) 10^6/uL Hgb (11.2-15.7) g/dL Hct (36.0-46.0) % MCV (80-95) fL MCH (27.0-33.0) pg MCHC (32.0-36.0) % RDW (11.7-14.6) % Plt Count (130-400) 10^3/uL MPV (8.0-11.0) fL Immature Gran % % Neutrophils % % Lymphocytes % % Monocytes % % Eosinophils % % Basophils % % Nucleated RBC % (0.0-0.3) % Absolute Neutrophils (1.2-6.7) 10^3/uL Absolute Lymphocytes (1.2-3.4) 10^3/uL Absolute Monocytes (0.1-0.8) 10^3/uL Absolute Eosinophils (0.0-0.7) 10^3/uL Absolute Basophils (0.0-0.2) 10^3/uL PT INR APTT VBG pH (7.31-7.41) VBG pCO2 (41-51) mmHg VBG pO2 mmHg VBG HCO3 (23-28) mmol/L VBG Total CO2 (24-29) mmol/L VBG O2 Saturation % VBG Base Excess (-2-3) mmol/L VBG Lactate (0.6-1.4) mmol/L Sodium (136-145) mmol/L Potassium (3.5-5.1) mmol/L Chloride (98-107) mmol/L Carbon Dioxide (21.0-32.0) mmol/L Anion Gap (3-11) mmol/L BUN (7-18) mg/dL Creatinine (0.55-1.02) mg/dL Est GFR (CKD-EPI 2020) (mL/min/1.73m2) Glucose (74-106) mg/dL Calcium (8.5-10.1) mg/dL Magnesium (1.8-2.4) mg/dL Total Bilirubin (0.2-1.0) mg/dL AST (15-37) U/L ALT (14-59) U/L Alkaline Phosphatase (46-116) U/L Troponin I (<or=51) ng/L NT-Pro-B Natriuret Pep Pending Total Protein (6.4-8.2) g/dL Albumin (3.4-5.0) g/dL Lipase (<78) U/L Procalcitonin Pending Urine Color Pending Urine Clarity Pending Urine pH Pending Ur Specific Mcgregor Pending Urine Protein Pending Urine Ketones Pending Urine Blood Pending Urine Nitrite Pending Urine Bilirubin Pending Urine Urobilinogen Pending Ur Leukocyte Esterase Pending Urine Glucose Pending COVID-19 Source SARS-CoV-2 (PCR) (Negative) Influenza Type A (PCR) (Negative) Influenza Type B (PCR) (Negative) RSV (PCR) (Negative) 03/24/24 03/24/24 03/24/24 Range/Units 14:33 13:44 13:39 WBC 8.95 (4.4-10.8) 10^3/uL RBC 4.01 (3.93-5.22) 10^6/uL Hgb 12.4 (11.2-15.7) g/dL Hct 39.5 (36.0-46.0) % MCV 99 H (80-95) fL MCH 30.9 (27.0-33.0) pg MCHC 31.4 L (32.0-36.0) % RDW 15.3 H (11.7-14.6) % Plt Count 130 (130-400) 10^3/uL MPV 10.6 (8.0-11.0) fL Immature Gran % 1.0 % Neutrophils % 93.0 % Lymphocytes % 0.6 % Monocytes % 3.9 % Eosinophils % 1.3 % Basophils % 0.2 % Nucleated RBC % 0.0 (0.0-0.3) % Absolute Neutrophils 8.32 H (1.2-6.7) 10^3/uL Absolute Lymphocytes 0.05 L (1.2-3.4) 10^3/uL Absolute Monocytes 0.35 (0.1-0.8) 10^3/uL Absolute Eosinophils 0.12 (0.0-0.7) 10^3/uL Absolute Basophils 0.02 (0.0-0.2) 10^3/uL PT Pending INR Pending APTT Pending VBG pH 7.44 H (7.31-7.41) VBG pCO2 52 H (41-51) mmHg VBG pO2 35 mmHg VBG HCO3 35 H (23-28) mmol/L VBG Total CO2 32 H (24-29) mmol/L VBG O2 Saturation 68 % VBG Base Excess 11 H (-2-3) mmol/L VBG Lactate 3.2 H* (0.6-1.4) mmol/L Sodium 133 L (136-145) mmol/L Potassium 4.6 D (3.5-5.1) mmol/L Chloride 93 L (98-107) mmol/L Carbon Dioxide 33.0 H (21.0-32.0) mmol/L Anion Gap 7.0 (3-11) mmol/L BUN 62 H (7-18) mg/dL Creatinine 2.6 H D (0.55-1.02) mg/dL Est GFR (CKD-EPI 2020) 19.50 (mL/min/1.73m2) Glucose 129 H (74-106) mg/dL Calcium 8.7 (8.5-10.1) mg/dL Magnesium 2.4 (1.8-2.4) mg/dL Total Bilirubin 2.01 H (0.2-1.0) mg/dL AST 68 H (15-37) U/L ALT 68 H (14-59) U/L Alkaline Phosphatase 46 (46-116) U/L Troponin I 45 (<or=51) ng/L NT-Pro-B Natriuret Pep Total Protein 7.1 (6.4-8.2) g/dL Albumin 2.7 L (3.4-5.0) g/dL Lipase 50 (<78) U/L Procalcitonin Urine Color Urine Clarity Urine pH Ur Specific Mcgregor Urine Protein Urine Ketones Urine Blood Urine Nitrite Urine Bilirubin Urine Urobilinogen Ur Leukocyte Esterase Urine Glucose COVID-19 Source Nasopharynx SARS-CoV-2 (PCR) Negative (Negative) Influenza Type A (PCR) Negative (Negative) Influenza Type B (PCR) Negative (Negative) RSV (PCR) Negative (Negative) 03/24/24 14:07 Blood Culture - Pending Blood 03/24/24 13:44 Blood Culture - Pending Blood Intake and Output - 24 Hour Total 03/24/24 13:14 thru 03/24/24 14:54 Output Total 100 Balance -100 Weight 143.2 kg Output: Urine 100 Falls Risk Assessment History of Falls Previous History 03/24/24 13:56 Contributing Factors Unstable,Impairments, 03/24/24 13:56 Incontinence Ambulatory Aids Uses ambulatory device 03/24/24 13:56 Tubes/Lines With any additional score 03/24/24 13:56 Gait Evaluation W/any additional score 03/24/24 13:56 Cognition No cognitive impairment 03/24/24 13:56 Fall Total Score 79 03/24/24 13:56 Level of Risk Maximum Risk 03/24/24 13:56 v v v v v v v v v Sending and/or Receiving Nurses: Please use comment section below to note any information pertinent to the patient hand-off not included above. Information / Comments: Report received from: Charley MILES
[2024-03-24 16:07] LABS: Bilirubin Moderate (Negative); Blood Negative (Negative); Clarity Clear (Clear); Glucose Negative (Negative); Ketones Trace mg/dL (Negative); Leukocyte Esterase Negative (Negative); Nitrite Positive (Negative); Specific Gravity >= 1.030 (1.005-1.025); Urobilinogen 0.2 mg/dL (Up to 0.2)
[2024-03-24 16:13] LABS: PTT Activated 41.2 sec (23.6-32.8); Prothrombin Time 35.8 sec (9.1-11.1)
[2024-03-24 16:19] LABS: Bacteria Few HPF (Negative); C & S Indicated? No/Sq. Contamination; Casts 0-2 Coarse Granular LPF (Negative); Crystals Negative HPF (Negative); Epithelial Cells Moderate HPF (Negative); Mucus Negative (Negative); Other Cells Few Transitional (Negative); RBC 0-2 HPF (0-2)
[2024-03-24 16:34] LABS: NT-proBNP 6635 pg/mL (<300)
[2024-03-24 16:49] LABS: Procalcitonin 18.49 ng/mL
[2024-03-24] MEDS: Furosemide 100 MG/10 ML VIAL 120 MG IVP (19:45)
[2024-03-24] MEDS: Polyethylene Glycol 3350 17 GM PACKET PO (20:00)
[2024-03-24] MEDS: Normal Saline Flush 10 ML SYR IVP (21:03)
[2024-03-24] MEDS: oxyCODONE 5 MG TAB PO (23:26)
[2024-03-25] VITALS (25 sets, daily range): BP systolic 103–126; BP diastolic 57–73; PULSE 66–106; RESP 12–31; TEMP 36.1–36.9; O2SAT 80–98
[2024-03-25] MEDS: Normal Saline Flush 10 ML SYR IVP ×3 (05:47→20:57)
[2024-03-25] MEDS: oxyCODONE 5 MG TAB PO ×3 (05:47→22:26)
[2024-03-25 06:12] LABS: HCT 36.8 % (36.0-46.0); HGB 11.7 g/dL (11.2-15.7); MCH 31.2 pg (27.0-33.0); MCHC 31.8 % (32.0-36.0); MCV 98 fL (80-95); MPV 10.8 fL (8.0-11.0); Platelet Count 107 10^3/uL (130-400); RBC 3.75 10^6/uL (3.93-5.22); RDW 15.3 % (11.7-14.6); RDW-SD 55.6 fL; WBC 5.75 10^3/uL (4.4-10.8)
[2024-03-25 06:35] LABS: Anion Gap 5.8 mmol/L (3-11); BUN 75 mg/dL (7-18); CO2 35.2 mmol/L (21.0-32.0); CREATININE 2.6 mg/dL (0.55-1.02); Calcium 8.6 mg/dL (8.5-10.1); Chloride 92 mmol/L (98-107); Glucose 130 mg/dL (74-106); Magnesium 2.5 mg/dL (1.8-2.4); Potassium 4.4 mmol/L (3.5-5.1); Sodium 133 mmol/L (136-145)
[2024-03-25] MEDS: Acetaminophen 325 MG TAB PO ×2 (08:36→13:38)
--- NOTE | 2024-03-25 09:27 | W.PM.PROGNOT ---
Date of Service Date of service: 03/25/24 Time of Service: 09:27 Assessment and Plan Assessment and plan (1) Acute kidney injury superimposed on CKD: Status: Acute Assessment and plan: -Anuric renal failure on admission with fliud overload -Most c/w ATN from nephrotoxic chemotherapy, unable to mobilize IV fluids given with 03/23 chemotherapy. Her history of more mild MEY after her initial chemotherapy session is c/w this. -Send FEUrea to help confirm -Urine output has been good on furosemide drip, electrolytes stable, creatinine. She does not need emergent dialysis. -Continue furosemide drip given fluid overload on admission likely leading to renal venous congestion, but consider de-escalation later in day to avoid overdiuresis. (2) Acute on chronic hypoxic respiratory failure: Status: Acute Assessment and plan: -Secondary to anuria and fluid overload. -Currently nearing baseline oxygen requirement. -No pneumonia on CXR(though limited), no fever or cough or white count. Elevated procalcitonin likely secondary to chemotherapy. I don't see an indication to continue treating pnuemonia. -Likely component of right sided CHF. Will get more of cardiac history and get echocardiogram when available. (3) Head and neck cancer: Status: Acute Assessment and plan: -It appears patient's chemo had a direct effect on patient's kidneys, as this pattern was noted after her first chemo session. -After acute hospitalization, patient will need to have discussion with her oncologist regarding chemotherapy regimen going forward. Radiation due Friday 03/30 at [facility]. (4) Lactic acid acidosis: Status: Acute Assessment and plan: - Lactic acid 3.2, Likely secondary to combination of anuria, and chemotherapy as noted above, normalized on repeat. (5) Elevated LFTs: Status: Acute Assessment and plan: - May be secondary to some combination of other hepatic congestion and/or chemotherapy -Total bili 2 (was 1.524 hours prior), AST and ALT also elevated as compared to 24 hours prior. Follow in AM (6) DVT prophylaxis: Status: Acute Assessment and plan: on warfarin chronically, INR 4 yesterday, repeat today 2.4, resume oral warfarin Subjective Subjective Patient reports: feels better; denies diarrhea, blood in stool, nausea, vomiting or fever Interval history since last seen: 24 hr events: On furosemide drip overnight, 20mg/hr. Urine output 875ml overnight. Fletcher is feeling a little better, less short of breath. She never had fever or cough. She is not nauseous, ate some this morning. Had a BM yesterday evening, no blood/black. Exam Narrative Exam Narrative: Laying in bed at 45%, no respiratory distress at rest, speaking in full sentences, ANO x 4, 4 L nasal cannula in place. heart regular rate rhythm, lungs diminished in left lower lung field, good air movement right, no rales or wheezes. Abdomen obese, soft, nontender, nondistended, lower extremity now +1-2 pitting to the knees, no longer weeping. Warm, stasis hyperpigmentation noted shins. Objective Last Vital Signs Temp 36.1 C L 03/25/24 08:00 Pulse 66 03/25/24 08:01 Resp 24 03/25/24 08:01 BP 120/70 03/25/24 08:01 Pulse Ox 98 03/25/24 06:00 Laboratory Results - last 24 hr 03/24/24 03/24/24 03/24/24 13:39 13:44 15:59 WBC 8.95 RBC 4.01 Hgb 12.4 Hct 39.5 MCV 99 H MCH 30.9 MCHC 31.4 L RDW 15.3 H Plt Count 130 MPV 10.6 Immature Gran % 1.0 Neutrophils % 93.0 Lymphocytes % 0.6 Monocytes % 3.9 Eosinophils % 1.3 Basophils % 0.2 Nucleated RBC % 0.0 Absolute Neutrophils 8.32 H Absolute Lymphocytes 0.05 L Absolute Monocytes 0.35 Absolute Eosinophils 0.12 Absolute Basophils 0.02 PT 35.8 H INR 4.0 H APTT 41.2 H VBG pH 7.44 H VBG pCO2 52 H VBG pO2 35 VBG HCO3 35 H VBG Total CO2 32 H VBG O2 Saturation 68 VBG Base Excess 11 H VBG Lactate 3.2 H* Sodium 133 L Potassium 4.6 D Chloride 93 L Carbon Dioxide 33.0 H Anion Gap 7.0 BUN 62 H Creatinine 2.6 H D Est GFR (CKD-EPI 2020) 19.50 Glucose 129 H Calcium 8.7 Magnesium 2.4 Total Bilirubin 2.01 H AST 68 H ALT 68 H Alkaline Phosphatase 46 Troponin I 45 NT-Pro-B Natriuret Pep Total Protein 7.1 Albumin 2.7 L Lipase 50 Procalcitonin Urine Color Dark Yellow Urine Clarity Clear Urine pH 5.0 Ur Specific Meno >= 1.030 H Urine Protein 100 H Urine Ketones Trace H Urine Blood Negative Urine Nitrite Positive H Urine Bilirubin Moderate H Urine Urobilinogen 0.2 Ur Leukocyte Esterase Negative Urine RBC 0-2 Urine WBC 3-5 Ur Epithelial Cells Moderate Urine Crystals Negative Urine Bacteria Few Urine Casts 0-2 Coarse Granular Urine Mucus Negative Urine Other Few Transitional Ur Culture Indicated? No/Sq. Contamination Urine Glucose Negative COVID-19 Source Nasopharynx SARS-CoV-2 (PCR) Negative Influenza Type A (PCR) Negative Influenza Type B (PCR) Negative RSV (PCR) Negative 03/24/24 03/25/24 16:08 05:50 WBC 5.75 RBC 3.75 L Hgb 11.7 Hct 36.8 MCV 98 H MCH 31.2 MCHC 31.8 L RDW 15.3 H Plt Count 107 L MPV 10.8 Immature Gran % Neutrophils % Lymphocytes % Monocytes % Eosinophils % Basophils % Nucleated RBC % Absolute Neutrophils Absolute Lymphocytes Absolute Monocytes Absolute Eosinophils Absolute Basophils PT INR APTT VBG pH VBG pCO2 VBG pO2 VBG HCO3 VBG Total CO2 VBG O2 Saturation VBG Base Excess VBG Lactate Sodium 133 L Potassium 4.4 Chloride 92 L Carbon Dioxide 35.2 H Anion Gap 5.8 BUN 75 H Creatinine 2.6 H Est GFR (CKD-EPI 2020) 19.50 Glucose 130 H Calcium 8.6 Magnesium 2.5 H Total Bilirubin AST ALT Alkaline Phosphatase Troponin I NT-Pro-B Natriuret Pep 6635 H Total Protein Albumin Lipase Procalcitonin 18.49 Urine Color Urine Clarity Urine pH Ur Specific Meno Urine Protein Urine Ketones Urine Blood Urine Nitrite Urine Bilirubin Urine Urobilinogen Ur Leukocyte Esterase Urine RBC Urine WBC Ur Epithelial Cells Urine Crystals Urine Bacteria Urine Casts Urine Mucus Urine Other Ur Culture Indicated? Urine Glucose COVID-19 Source SARS-CoV-2 (PCR) Influenza Type A (PCR) Influenza Type B (PCR) RSV (PCR) Time Spent with Patient Time Spent with Patient: >50 minutes Time was spent: preparing to see the patient(eg.review tests), obtaining and/or reviewing separately otained hiistory, ordering medications,tests, procedures, referring, communicating with other health medicare interviewer, indepentently interpreting results, counseling the patient and care coordination
[2024-03-25 10:40] LABS: Lactate 1.2 mmol/L (0.6-1.4)
[2024-03-25 10:48] LABS: INR 2.4 (0.9-1.1); Prothrombin Time 22.2 sec (9.1-11.1)
[2024-03-25 10:55] LABS: Creatinine,Urine 40.54 mg/dL
[2024-03-25] MEDS: Magic Mouthwash 119 ML BTL 10 ML MM (12:55)
--- NOTE | 2024-03-25 14:24 | PHA.REVIEW2 ---
Pharmacy Admission Review Admission Clinical Review Admission Pharmacy Review: DVT prophylaxis (Acute) Elevated LFTs (Acute) Lactic acid acidosis (Acute) Anuria (Acute) Head and neck cancer (Acute) Acute kidney injury superimposed on CKD (Acute) Acute on chronic hypoxic respiratory failure (Acute) apixaban (From Eliquis) Allergy (Intermediate, Verified 03/24/24 13:26) Other (See Comment) Sulfa (Sulfonamide Antibiotics) Allergy (Mild, Verified 03/24/24 13:26) Unknown Resuscitation Status Full Code Height 5 ft 5 in Weight 170.5 kg Pharmacy Admission Review Renal Dosing Renal Dosing: BUN 75 mg/dL (7-18) H 03/25/24 05:50 Creatinine 2.6 mg/dL (0.55-1.02) H 03/25/24 05:50 Medications needing adjustments: Reviewed List of meds needing interventions: eCrCl using adjusted body weight = 33.5 ml/min; all meds dosed appropriately at this time Anticoagulation Anticoagulation: Hgb 11.7 g/dL (11.2-15.7) 03/25/24 05:50 Hct 36.8 % (36.0-46.0) 03/25/24 05:50 Plt Count 107 10^3/uL (130-400) L 03/25/24 05:50 INR 2.4 (0.9-1.1) H 03/25/24 10:28 Creatinine 2.6 mg/dL (0.55-1.02) H 03/25/24 05:50 DVT Prophylaxis: Reviewed Therapeutic Anticoagulation: Reviewed Medications: Warfarin Opiate Usage Evaluate Pain Scale/Pains Meds: Reviewed (oxycodone 5mg q4h PRN) Scheduled Bowel Reg ordered if on Opiates?: No (PRN orders only) Relevant Labs Relevant Labs: Sodium 133 mmol/L (136-145) L 03/25/24 05:50 Potassium 4.4 mmol/L (3.5-5.1) 03/25/24 05:50 Chloride 92 mmol/L (98-107) L 03/25/24 05:50 Magnesium 2.5 mg/dL (1.8-2.4) H 03/25/24 05:50 DM Control DM Control: N/A Cardiac Review Cardiac Review: Troponin I 45 ng/L (<or=51) 03/24/24 13:44 NT-Pro-B Natriuret Pep 6635 pg/mL (<300) H 03/24/24 16:08 BP, HR, EF%: Reviewed IV to PO Switch IV Medications: Reviewed Home Meds Home Med List reviewed: Reviewed Relevent Home Meds Not ordered & why?: All ordered with the exception of bumex as she is currently on a lasix gtt; she does NOT take olanzapine -- it was prescribed for CINV and pt has not started taking it Current Meds Current Medication Order Review: Reviewed Pharmacy Antibiotic Review Relevant Labs: Relevant Labs 03/24/24 16:08 Procalcitonin 18.49
--- NOTE | 2024-03-25 14:27 | PHA.REVIEW2 ---
Pharmacy Admission Review Admission Clinical Review Admission Pharmacy Review: DVT prophylaxis (Acute) Elevated LFTs (Acute) Lactic acid acidosis (Acute) Anuria (Acute) Head and neck cancer (Acute) Acute kidney injury superimposed on CKD (Acute) Acute on chronic hypoxic respiratory failure (Acute) apixaban (From Eliquis) Allergy (Intermediate, Verified 03/24/24 13:26) Other (See Comment) Sulfa (Sulfonamide Antibiotics) Allergy (Mild, Verified 03/24/24 13:26) Unknown Resuscitation Status Full Code Height 5 ft 5 in Weight 170.5 kg Pharmacy Admission Review Renal Dosing Renal Dosing: BUN 75 mg/dL (7-18) H 03/25/24 05:50 Creatinine 2.6 mg/dL (0.55-1.02) H 03/25/24 05:50 Anticoagulation Anticoagulation: Hgb 11.7 g/dL (11.2-15.7) 03/25/24 05:50 Hct 36.8 % (36.0-46.0) 03/25/24 05:50 Plt Count 107 10^3/uL (130-400) L 03/25/24 05:50 INR 2.4 (0.9-1.1) H 03/25/24 10:28 Creatinine 2.6 mg/dL (0.55-1.02) H 03/25/24 05:50 Relevant Labs Relevant Labs: Sodium 133 mmol/L (136-145) L 03/25/24 05:50 Potassium 4.4 mmol/L (3.5-5.1) 03/25/24 05:50 Chloride 92 mmol/L (98-107) L 03/25/24 05:50 Magnesium 2.5 mg/dL (1.8-2.4) H 03/25/24 05:50 Cardiac Review Cardiac Review: Troponin I 45 ng/L (<or=51) 03/24/24 13:44 NT-Pro-B Natriuret Pep 6635 pg/mL (<300) H 03/24/24 16:08 Pharmacy Antibiotic Review Relevant Labs: Relevant Labs 03/24/24 16:08 Procalcitonin 18.49
[2024-03-25] MEDS: Potassium Chloride 20 MEQ TABCR PO (15:06)
--- NOTE | 2024-03-25 17:54 | RESPIRATORY ---
Addendum entered by Judson Caruso 03/25/24 17:57: Pt has her own [employer] portable O2 concentrator - with her at bedside and ready for when she discharges. Original Note: Pt's own ResMed NIV machine to be used at HS and with naps. Mode: iVAPS Height: 64 inches Target Tidal Volume: 5.2 L/min Target Rate: 12 MV: 6.3 Avg Vt: 529 Vt/k.6 ml/kg IBW EPAP: 8 Min PS: 6 Max PS: 15 TiMax: 2 sec TiMin: 0.3 sec Rise Time: 300ms Starting EPAP: 4 O2 bleed in: 3L baseline Interface: Face Mask with integrated nasal pillow Oxygen DME: [employer] NIV Machine DME: [employer] Pt uses 3L O2 22/10 baseline, including bled in to NIV machine at night.
--- NOTE | 2024-03-25 18:40 | W.PC.ACHO ---
Registration Status: Primary Language: Preferred Language: ED Information & Data Chief Complaint SOB 03/24/24 13:54 Triage Note Pt sent from cancer center 03/24/24 13:18 for new SOB and decreased urine output despite diuretics. States has not peed since this morning. Pt wears a pad. BSL 2-3L, new requirement for 4L NC. Pt SOB at rest and with exertion. Being treated with chemo and radiation for head and neck cancer. Pt reports mouth pain. Per cancer center pt gets 2 or 3 L of IVF with treatment . Did not receive treatment today for got it yesterday. has R chest port, currently accessed from cancer center. Most Recent Vital Signs Temperature 36.5 C 03/25/24 18:17 Temperature Source Temporal Artery Scan 03/25/24 18:17 Pulse 101 H 03/25/24 18:17 Pulse 106 H 03/25/24 16:59 Respiratory Rate 18 03/25/24 18:17 Respiratory Effort Short of Breath, Labored, Incrsd Work of Breathing 03/24/24 18:00 Respiratory Depth Shallow 03/24/24 18:00 Respiratory Pattern Tachypnea 03/24/24 18:00 Blood Pressure 126/62 03/25/24 18:17 Blood Pressure Mean 119 03/25/24 16:59 Blood Pressure Position Sitting 03/24/24 16:33 Pulse Oximetry 95 03/25/24 18:17 Oxygen Delivery Method Nasal Cannula 03/25/24 18:17 Oxygen Flow Rate 3 03/25/24 18:17 Pain Level 0 03/25/24 18:17 Allergies apixaban (From Eliquis) Allergy (Intermediate, Verified 03/24/24 13:26) Other (See Comment) petechia Sulfa (Sulfonamide Antibiotics) Allergy (Mild, Verified 03/24/24 13:26) Unknown Precautions Isolation Protective precaution 03/24/24 13:26 Active Medications Generic Name Dose Route Start Last Admin Trade Name Freq PRN Reason Stop Dose Admin Acetaminophen 0 mg 03/24/24 18:09 03/25/24 13:38 Acetaminophen 325 Mg Tab PO 650 mg Q4H PRN PRN Administration Lidocaine/Diphenhydr/Alum/Mg/Simeth 10 ml 03/25/24 09:25 03/25/24 12:55 Magic Mouthwash 119 Ml Btl MM 10 ml Q6H PRN PRN Administration Megestrol Acetate 40 mg 03/25/24 16:00 03/25/24 15:05 Megestrol 40 Mg Tab PO 40 mg QID XIOMARA Administration Nystatin 0 gm 03/25/24 14:00 03/25/24 14:25 Nystatin Powder 60 Gm Jar TP Not Given TID XIOMARA Oxycodone HCl 5 mg 03/24/24 21:39 03/25/24 15:06 Oxycodone 5 Mg Tab PO 5 mg Q4H PRN Administration Polyethylene Glycol 17 gm 03/24/24 18:09 03/24/24 20:00 Polyethylene Glycol 3350 17 Gm Packet PO 17 gm DAILY PRN PRN Administration Constipation Sodium Chloride 0 ml 03/24/24 18:09 03/25/24 05:47 Normal Saline Flush 10 Ml Syr IVP 30 ml PRN PRN Administration Sodium Chloride 0 ml 03/24/24 20:00 03/25/24 08:36 Normal Saline Flush 10 Ml Syr IVP 40 ml BID XIOMARA Administration IV IV Catheter Type [Proximal Port-a-cath (single) Port] IV Catheter Gauge [Proximal 18 Port] Diagnostics 03/25/24 03/25/24 Range/Units 10:28 05:50 WBC 5.75 (4.4-10.8) 10^3/uL RBC 3.75 L (3.93-5.22) 10^6/uL Hgb 11.7 (11.2-15.7) g/dL Hct 36.8 (36.0-46.0) % MCV 98 H (80-95) fL MCH 31.2 (27.0-33.0) pg MCHC 31.8 L (32.0-36.0) % RDW 15.3 H (11.7-14.6) % Plt Count 107 L (130-400) 10^3/uL MPV 10.8 (8.0-11.0) fL PT 22.2 H (9.1-11.1) sec INR 2.4 H (0.9-1.1) VBG Lactate 1.2 (0.6-1.4) mmol/L Sodium 133 L (136-145) mmol/L Potassium 4.4 (3.5-5.1) mmol/L Chloride 92 L (98-107) mmol/L Carbon Dioxide 35.2 H (21.0-32.0) mmol/L Anion Gap 5.8 (3-11) mmol/L BUN 75 H (7-18) mg/dL Creatinine 2.6 H (0.55-1.02) mg/dL Est GFR (CKD-EPI 2020) 19.50 (mL/min/1.73m2) Glucose 130 H (74-106) mg/dL Calcium 8.6 (8.5-10.1) mg/dL Magnesium 2.5 H (1.8-2.4) mg/dL Ur Random Creatinine 40.54 mg/dL Urine Urea Nitrogen Pending 03/24/24 14:07 Blood Culture - Preliminary Blood NO GROWTH 24 HOURS 03/24/24 13:44 Blood Culture - Preliminary Blood NO GROWTH 24 HOURS Intake and Output - 24 Hour Total 03/24/24 13:14 thru 03/25/24 18:17 Intake Total 1609.125 Output Total 3210 Balance -1600.875 Weight 170.5 kg Intake: IV 509.125 Oral 1100 Output: Urine 3210 Other: Urine Color Yellow Urine Appearance Clear Stool Size Large Stool Characteristics Formed Mucoid Brown Falls Risk Assessment History of Falls No History 03/24/24 18:00 Contributing Factors Unstable,Impairments 03/24/24 18:00 Ambulatory Aids Uses ambulatory device 03/24/24 18:00 Tubes/Lines W/no contributing factors 03/24/24 18:00 Gait Evaluation No gait disturbance 03/24/24 18:00 Cognition No cognitive impairment 03/24/24 18:00 Fall Total Score 31 03/24/24 18:00 Level of Risk Moderate Risk 03/24/24 18:00 Problems DVT prophylaxis (Acute) Elevated LFTs (Acute) Lactic acid acidosis (Acute) Anuria (Acute) Head and neck cancer (Acute) Acute kidney injury superimposed on CKD (Acute) Acute on chronic hypoxic respiratory failure (Acute) Notes 03/25/24 17:54 Respiratory by Judson Caruso Addendum entered by Judson Caruso 03/25/24 17:57: Pt has her own [employer] portable O2 concentrator - with her at bedside and ready for when she discharges. Original Note: Pt's own [employer]Med NIV machine to be used at HS and with naps. Mode: iVAPS Height: 64 inches Target Tidal Volume: 5.2 L/min Target Rate: 12 MV: 6.3 Avg Vt: 529 Vt/k.6 ml/kg IBW EPAP: 8 Min PS: 6 Max PS: 15 TiMax: 2 sec TiMin: 0.3 sec Rise Time: 300ms Starting EPAP: 4 O2 bleed in: 3L baseline Interface: Face Mask with integrated nasal pillow Oxygen DME: [employer] NIV Machine DME: [employer] Pt uses 3L O2 / baseline, including bled in to NIV machine at night. Initialized on 03/25/24 17:54 - END OF NOTE v v v v v v v v v Sending and/or Receiving Nurses: Please use comment section below to note any information pertinent to the patient hand-off not included above. Information / Comments: Report from Peterson in ICU at [id number] Report received from:
[2024-03-25] MEDS: Nystatin POWDER 60 GM JAR TP (20:56)
[2024-03-26] VITALS (7 sets, daily range): BP systolic 92–128; BP diastolic 54–79; PULSE 90–102; RESP 16–19; TEMP 36.2–36.8; O2SAT 92–97
[2024-03-26 06:21] LABS: INR 1.9 (0.9-1.1); Prothrombin Time 17.7 sec (9.1-11.1)
[2024-03-26 06:29] LABS: ALT 45 U/L (14-59); AST 22 U/L (15-37); Albumin 2.6 g/dL (3.4-5.0); Alkaline Phosphatase 47 U/L (46-116); Anion Gap 5.2 mmol/L (3-11); BUN 79 mg/dL (7-18); Bilirubin, Total 0.87 mg/dL (0.2-1.0); CO2 36.8 mmol/L (21.0-32.0); CREATININE 2.1 mg/dL (0.55-1.02); Calcium 8.7 mg/dL (8.5-10.1); Chloride 93 mmol/L (98-107); Estimated GFR 25.19 (mL/min/1.73m2); Glucose 138 mg/dL (74-106); Magnesium 2.5 mg/dL (1.8-2.4); Potassium 3.9 mmol/L (3.5-5.1); Sodium 135 mmol/L (136-145); Total Protein 6.7 g/dL (6.4-8.2)
[2024-03-26] MEDS: Magic Mouthwash 119 ML BTL 10 ML MM ×2 (07:45→16:41)
[2024-03-26] MEDS: Allopurinol 100 MG TAB 200 MG PO (08:15)
[2024-03-26] MEDS: dilTIAZem CD 120 MG CAPCR PO (08:15)
[2024-03-26] MEDS: Potassium Chloride 10 MEQ TABCR PO (08:15)
[2024-03-26] MEDS: Normal Saline Flush 10 ML SYR IVP ×3 (08:16→20:04)
[2024-03-26] MEDS: oxyCODONE 5 MG TAB PO ×2 (08:21→20:02)
[2024-03-26] MEDS: Polyethylene Glycol 3350 17 GM PACKET PO (08:21)
[2024-03-26] MEDS: Acetaminophen 325 MG TAB PO ×2 (08:21→13:04)
[2024-03-26] MEDS: Nystatin POWDER 60 GM JAR TP ×3 (08:30→20:03)
--- NOTE | 2024-03-26 08:33 | CHAPLAIN ---
I visited with Fletcher yesterday when she was in the ICU. She is being treated with radiation and chemo for head and neck cancer and now is possibly having complications with her kidneys because of the treatments. 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 She has some friends locally in [place] and other friends who live at a distance. Fletcher cleared out her mom's house after she and is now working downsizing her own home as she is on a waiting list for a cottage at the [facility] which has graduated system from independent living to assisted living. She is dealing with a lot emotionally and physically as she has these treatments and makes plans for her future. 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 I will continue to visit.
--- NOTE | 2024-03-26 09:25 | PDOC.CMIN ---
Date of service: 03/26/24 Time of Service: 09:25 Care Management Initial Assmt Initial Assessment Reason for Hospitalization: Acute on Chronic respiratory failure, MEY Functional Status/Living Situation Patient Presentation: Fletcher was awake and sitting in a chair when CM met with her. She is pleasant and engages in conversation. She is being closely monitored and treated for respiratory failure and was sent to [facility] ER for an eval by her oncologist at [facility]. Pt is currently being treated with chemo and radiation for tongue cancer. Fletcher reported to CM that [facility] is out of network for her insurance company unless it is pertinent in some way that she receive care here. CM called her insurance and verified that an auth request for this stay addressing her concerns had already been started at 1030 this morning. CM will continue to follow. 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: N 03/10/24 10:43 Date Asked 03/24/24 03/24/24 15:03 AD Date Reviewed COLST On File at [facility] COLST Date Scanned Code Status Resuscitation Status Full Code Portal Pt does not currently have a portal and education provided: Yes Insurance Coverage/Financial Issues Insurance: [id number] Financial Issues: None identified Care Team Visit Care Team Role Provider Type Arelis Ventura Primary Care Provider NON-[facility] STAFF PHYSICIAN InPatient Mani Farr Other Providers OTHER AISSATOU Mcgowan Emergency Provider PHYSICIANS SCIENCE MANAGER Colten Koo MD Admit Provider [facility] STAFF PHYSICIAN Attending Provider Discharge Potential Discharge Needs: PCP F/U Appt and Other (Oncology) Anticipated Barriers to Discharge: Medical Status Patient/Family Education Needs: Review discharge instructions, discuss Ask Me Three Transportation: Private vehicle Plan: Discharge home via private vehicle with a friend. Close follow up with community providers and discharge plan of care as recommended. New PT services are recommended through the VNA ([place]/ [facility]). CM will follow and support discharge considerations. PFSH All Active Problems (Updated 03/25/24 @ 09:49 by Kaushik Franklin) DVT prophylaxis (Acute) Elevated LFTs (Acute) Lactic acid acidosis (Acute) Anuria (Acute) Oliguria (Acute) Head and neck cancer (Acute) Acute kidney injury superimposed on CKD (Acute) Acute kidney injury (Acute) Acute on chronic hypoxic respiratory failure (Acute) Social History Smoking/Tobacco Use Status: Never Smoking risk assessment performed?: Yes Alcohol Intake: never Drug use: Never Substance use type: does not use Housing: house SDOH(Care Management) Screening Will the Patient Participate in the Screening?: Yes Do you worry about having a steady place to live?: no Problems where you live: no known problems In the past 12 months, have you had to go without electric, gas, oil or water in your home?: no Have you or anyone in your house had to go without enough food to eat?: no Has lack of transportation kept you from medical appointments or from doing things needed for daily living?: no Has anyone in your support network made you feel unsafe for any reason?: no Anticipated HH Services Anticipated HH Services at Discharge VNA (Contact Information. [facility]. [address] [place] [address]. [place] [address]. P: or . F: .) Services Needed.
--- NOTE | 2024-03-26 09:30 | DI.US_ITS ---
APPROVED REPORT EXAM: Comprehensive 2D, Doppler, and color-flow Echocardiogram Patient Location: In-Patient Room/Bed: 211 Physical Therapist Center Manager: Sy Valdivia RDCS (AE) Indications: Fluid overload after chemo Other Information Study Quality: Poor. Technically limited study due to body habitus, inability to position patient. Conclusion Technically very difficult and suboptimal study Left ventricle appears grossly normal in size and systolic function Right ventricle is not well-visualized but appears enlarged Both atria are moderately dilated Mild mitral annular calcification, mild mitral regurgitation Ascending aorta measures 3.6 cm Wall motion Left Ventricle The left ventricle is normal size. Borderline concentric left ventricular hypertrophy. There is no ve ntricular septal defect visualized. Right Ventricle Right ventricle is not well visualized. Right ventricular systolic function could not be assessed. Atria Left atrium is moderately dilated. Right atrium is moderately dilated. The interatrial septum is inta ct with no evidence for an atrial septal defect. Aortic Valve Aortic valve is grossly normal in structure. There is no aortic valvular stenosis. No aortic regurgit ation is present. Mitral Valve Mild mitral annular calcification. No evidence of mitral valve stenosis. Mild mitral regurgitation. Tricuspid Valve Tricuspid valve is grossly normal in structure. There is no tricuspid valve stenosis. Trace tricuspid regurgitation. Unable to assess PA pressure. Pulmonic Valve Pulmonic valve is not well visualized. Great Vessels The aortic root is normal in size. The ascending aorta is mildly dilated. Aortic arch is normal in ca liber. IVC is normal in size and collapses >50% with inspiration. Pericardium There is no pericardial effusion. 2D Dimensions IVSD d PLAX 1.03 cm F: 0.6-1.0 Ao Root d 2.72 cm F: 2.7 - 3.3 LVPW d PLAX 1.01 cm F: 0.6 - 1.0 Ao Asc Diam d 3.61 cm F: 2.3 - 3.1 LVID d PLAX 4.95 cm F: 3.8 - 5.2 LVDs 3.36 cm F: 2.2 - 3.5 LV EF Teichholz 60.1 % FS 32.13 % LV EDV (Teich) 115.4 mL LV ESV (Teich) 46.0 mL Stroke Vol Index (Teich) 26.88 LA Volume LA Length A4C 6.0 cm LA Length A2C LA Area A4C s 18.23 cm2 LA Area A2C s LA Vol A4C A-L 46.87 mL LA Vol A2C A-L LA Vol Biplane A-L LA Vol A4C MOD 44.9 mL LA Vol A2C MOD LA Vol BP MOD RA Volume RA Area A4C 18.3 cm2 RA ESV A4C (A-L) 54.1mL RA Vol/BSA A4C A-L RA Length A4C 5.3 cm RA ESV A4C (MOD) 51.9mL LV Diastology MV E' lateral 0.070 (>0.1 m/s) MV E Vmax 0.52 (0.4-1.3 m/s) MV E/E' LAT 7.52 (<14) MV A Vmax 0.30 (0.4-1.3 m/s) E/A Ratio 1.7 Aortic Valve AoV Vmax 0.92 m/s LVOT Vmax 0.56 m/s AoV Peak Grad 3.4 mmHg LVOT Peak Grad 1.3 mmHg AoV Area (Vmax) 1.52 cm2 LVOT VTI 0.074 m AoV VTI 0.136 m LVOT Mean Grad 0.8 mmHg AoV Mean Arnoldo. 0.74 m/s LVOT SV 18.32 mL AoV Mean Grad 2.4 mmHg LVOT Diam s 1.75 cm AoV Area (VTI) 1.35 cm2 AV Regurg Peak Gr. 3.41 mmHg Velocity Ratio 0.61 Mitral Valve MV DT 183 (160-240 msec) Pulmonary Valve PV Vmax 1.07 (0.5-1.5 m/s) RVOT Vmax 0.60 m/s PV Peak Grad 4.6 mmHg RVOT Peak Gr. 1.5 mmHg PV Mean Arnoldo 0.73 m/s RVOT VTI 0.068 m PV Mean Grad 2.5 mmHg RVOT Mean Gr. 0.9 mmHg
[2024-03-26] MEDS: Furosemide 100 MG/10 ML VIAL 80 MG IVP (10:50)
--- NOTE | 2024-03-26 10:52 | PT.INIE ---
PT Notes Visit Reasons: Acute on chronic hypoxic respiratory failure, MEY, Inpatient Physical Therapy Evaluation Date: 03/26/2024 Referring Doctor: Dr. Franklin PT Orders: PT CONSULT: Evaluation and treatment Precautions: Continuous oxygen via nasal cannula, standard, Mulligan Patient Profile/Admitting Diagnosis: Patient is 68-year-old female with history of head and neck CA currently receiving chemotherapy with her last dose on 03/23/2024 who presented to the ED on 03/24/2024 with complaints of SOB and reduced urine output. Patient currently on home oxygen 2-3 L/min requiring increased to 4 L without reduction in SOB. Patient also increased Bumex for diuresis however had no increase in urine output. Patient diagnosed with fluid overload with increased BLE weeping edema and reduced breath sounds with crackles throughout. Patient labs showed increased creatinine and BUN. Patient Dx of anuric kidney failure, orthopnea and acute on chronic hypoxic respiratory failure. Mulligan was placed with minimal output. Patient treated with IV Lasix and transferred to ICU for medical management. Patient now with improved urine output and O2 demand remains at 4 L/min she was transferred to the MedSurg unit and PT consult placed. PMHX: Head and neck CA, elevated LFTs, acute kidney injury, oliguria, CHF, chronic hypoxic respiratory failure, CKD, hip replacement Social History/Home Situation: Patient resides alone in two-story home with ramp to enter. Patient stays on first floor however she has in the past been able to walk down her basement stairs to get to her garage and her car. Patient sleeps in recliner. She utilizes 4 L/min of oxygen continuously and wears BiPAP at night. Patient ambulates independently with four-wheel walker. Patient independent sponge bathing. She has a walk-in shower with tub seat and grab bars. She utilizes commode over her toilet since the hip replacement in the past. Patient independent with light meal prep/microwave use. She has assistance for homemaking and transportation Equipment Owned/DME: FWW, oxygen, BiPAP Subjective: Patient reports she is frustrated that her oxygen continues to be lowered from 4 L. Objective: General Observation: Obese female reclined in chair with oxygen on and bilateral lower extremities elevated. Erythema with 1+ pitting edema dry scaly skin noted to bilateral lower extremities. Mental Status: Alert and oriented x 4 Pain: denies Vital Signs: 95% on 3L/Min pt very adamant she is supposed to be on 4L/min. Pt with no dyspnea noted at rest or with mobility at 3 L/min sat 93% ROM: Right Upper Extremity: WFL Left Upper Extremity: WFL Right Lower Extremity: WFL limited by soft tissue approximation/ body habitus Left Lower Extremity: WFL limited by soft tissue approximation/body habitus Strength: Right Upper Extremity:4/5 Left Upper Extremity: 4/5 Right Lower Extremity:grossly 4/5 Left Lower Extremity: grossly 4/5 Sensation: Bed mobility: NT d/t pt does not sleep in bed Transfers:SBA with FWW Gait: Ambulated SBA with FWW 40 feet with oxygen at 3 L/min. Patient demonstrates reduced step length bilaterally, increase lateral weight shift, reduced step height. Pt able to manage oxygen tubing Balance: [] Static Sitting: Normal Dynamic Sitting: good Static Standing: good Dynamic Standing: fair Special Tests: Mobility Limitations Standardized Measure [facility] AM-PAC 6 clicks Basic Mobility Inpatient Short Form: Raw Score: 15 CMS Score: 57.57% Informed Consent/Education: Patient instructed in purpose of PT consult and plan of care. Assessment: Patient is a 68year old female referred to physical therapy services with the diagnosis of acute on chronic hypoxic respiratory failure and anuria. Patient presents with clinical signs and symptoms consistent with admitting diagnosis, as demonstrated by the following impairment level findings: 1. Impaired strength BLE major muscle groups 2. Impaired standing balance 3. Impaired functional activity tolerance in sitting and standing 4. Increased bilateral lower extremity edema 5. Oxygen dependent Impairments are contributing to the following functional limitations: 1. AMPAC score. 2. Declining transfer skills 3. Difficulty with ambulation without assistive device and physical assistance 4. Increased time to complete mobility/ADL tasks 5. Increased risk for falls Patient is assessed as a Moderate 27583 complexity based on the following: History: Patient is 68-year-old female with past medical history as indicated above Examination: Demonstratable impairments in strength balance and mobility level with underlying impairments and functional limitations as stated above Presentation: Evolving Decision Making: Moderate Goals: 1. Demonstrate independence with oxygen tubing management during all functional tasks. 2. Independent transfers with FWW 3. Independent ambulation on level surfaces with FWW greater than 50 feet to safely manage within home without report of pain or dyspnea. Plan of Care/Treatment Plan: 1-2x/day, 7 days/week x 1 week. Plan of care has been reviewed with the EMERGENCY PLANNING AND RESPONSE MANAGER providing the service under Physical Therapy direction. Initiate Physical Therapy intervention for strengthening, bed mobility, transfers, gait, stairs, balance training, use of assistive device. DISCHARGE RECOMMENDATIONS: [] [] Home with no services [] [X] Home with services HH PT [] Home with outpatient PT [] [] SNF for continued rehabilitation [] [] Long-Term Care [] [] SNF versus LTC based on ability to participate and progress [] TREATMENT CODE/TIME: 40444/1152?4083
--- NOTE | 2024-03-26 14:21 | CHAPLAIN ---
Fletcher was moved to /S last night. This morning when I visited she was concerned about getting to wash up and brush her teeth. She was frustrated by not getting to do things when she wanted to and having to wait until her PRODUCT SAFETY EXPERT was available. Fletcher has head and neck cancer, currently undergoing chemo and radiation treatments, and now dealing with kidney issues. 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
--- NOTE | 2024-03-26 15:01 | PGE_ITS ---
Date of Service Date of service: 03/26/24 Time of Service: 09:45 Assessment and Plan Assessment and plan (1) Acute kidney injury superimposed on CKD: Status: Acute Assessment and plan: -Anuric renal failure on admission with fliud overload -Most c/w ATN from nephrotoxic chemotherapy, unable to mobilize IV fluids given with 03/23 chemotherapy. Her history of more mild MEY after her initial chemotherapy session is c/w this. -Sent FEUrea to help confirm -Urine output was excellent on furosemide drip, down 2 liters, stoped to avoid overdiuresis. -electrolytes stable, creatinine improved. She does not need emergent dialysis. -IV furosemide this morning, then transition back to home bumex. -If stable plan discharge 03/27 (2) Acute on chronic hypoxic respiratory failure: Status: Acute Assessment and plan: -Secondary to anuria and fluid overload. -Currently back to baseline oxygen requirement. -No pneumonia on CXR(though limited), no fever or cough or white count. Elevated procalcitonin likely secondary to chemotherapy. No indication to continue treating pnuemonia. -Likely component of right sided CHF. echocardiogram limited but enlarged RV consistent with previous findings. IVC is not currently dilated, collapses, suggesting she has been diuresed well. (3) Head and neck cancer: Status: Acute Assessment and plan: -It appears patient's chemo had a direct effect on patient's kidneys, as this pattern was noted after her first chemo session. -After acute hospitalization, patient will need to have discussion with her oncologist regarding chemotherapy regimen going forward. Radiation due Friday 03/30 at [facility], follow up with heme/onc after discharge. (4) Elevated LFTs: Status: Acute Assessment and plan: - May be secondary to some combination of other hepatic congestion and/or chemotherapy -Total bili 2 AST and ALT also elevated, all improved with diuresis. (5) DVT prophylaxis: Status: Acute Assessment and plan: on warfarin chronically, INR 4 on admission, repeat 03/25 2.4, resumed oral warfarin Subjective Subjective Patient reports: feels better; denies no new complaints, diarrhea, nausea, vomiting or fever Interval history since last seen: 24 hr events: Furosemide drip stopped 03/25 evening after rapid diuresis during the day Breathing is close to her baseline, though she is still more tired than usual. She is eating. Hasn't been up walking yet. Magic mouthwash really helps Exam Narrative Exam Narrative: Sitting up in bed, no respiratory distress at rest, speaking in full sentences, ANO x 4, 3L nasal cannula in place. heart regular rate rhythm, lungs with slight rales in left lower lung field, no wheezing. Abdomen obese, soft, n ontender, nondistended, lower extremity now +1 pitting to the knees, no weeping. Warm, stasis hyperpigmentation noted shins with one bandaged sore on lama on right. Objective Last Vital Signs Temp 36.8 C 03/26/24 13:06 Pulse 102 H 03/26/24 13:06 Resp 18 03/26/24 13:06 BP 108/54 L 03/26/24 13:06 Pulse Ox 92 03/26/24 13:06 Laboratory Results - last 24 hr 03/26/24 03/26/24 05:30 05:30 PT 17.7 H INR 1.9 H Sodium 135 L Potassium 3.9 Chloride 93 L Carbon Dioxide 36.8 H Anion Gap 5.2 BUN 79 H Creatinine 2.1 H Est GFR (CKD-EPI 2020) 25.19 Glucose 138 H Calcium 8.7 Magnesium 2.5 H Cancelled Total Bilirubin 0.87 AST 22 ALT 45 Alkaline Phosphatase 47 Total Protein 6.7 Albumin 2.6 L Time Spent with Patient Time Spent with Patient: 35-49 minutes Time was spent: preparing to see the patient(eg.review tests), obtaining and/or reviewing separately otained hiistory, ordering medications,tests, procedures, referring, communicating with other health skin care technician, indepentently interpreting results, counseling the patient and care coordination
[2024-03-26] MEDS: Bumetanide 1 MG TAB PO (16:09)
[2024-03-26 18:23] LABS: Urea Nitrogen Random Urine 269 mg/dL (See Note)
[2024-03-27] MEDS: Acetaminophen 325 MG TAB PO ×3 (02:49→20:37)
[2024-03-27 03:58] VITALS: BP 116/69; PULSE 69; RESP 18; TEMP 36.6; O2SAT 99
[2024-03-27 06:31] LABS: BUN 72 mg/dL (7-18); CREATININE 1.7 mg/dL (0.55-1.02); Calcium 9.1 mg/dL (8.5-10.1); Chloride 93 mmol/L (98-107); Estimated GFR 32.46 (mL/min/1.73m2); Glucose 114 mg/dL (74-106); Potassium 3.9 mmol/L (3.5-5.1); Sodium 134 mmol/L (136-145)
[2024-03-27 06:32] LABS: INR 2.5 (0.9-1.1); Prothrombin Time 23.4 sec (9.1-11.1)
[2024-03-27] MEDS: Magic Mouthwash 119 ML BTL 10 ML MM ×3 (07:43→16:46)
[2024-03-27] MEDS: Potassium Chloride 10 MEQ TABCR PO (07:44)
[2024-03-27] MEDS: dilTIAZem CD 120 MG CAPCR PO (07:44)
[2024-03-27] MEDS: Allopurinol 100 MG TAB 200 MG PO (07:45)
[2024-03-27] MEDS: Normal Saline Flush 10 ML SYR IVP ×2 (07:45→20:39)
[2024-03-27] MEDS: Bumetanide 1 MG TAB PO ×2 (07:45→16:46)
[2024-03-27] MEDS: oxyCODONE 5 MG TAB PO ×2 (09:52→18:02)
--- NOTE | 2024-03-27 10:01 | NUR.NOTE ---
PT insists that she needs to be on 4L via NC despite sating in the high 90's. PT noted to have been put on 3L by RT, was sating at 98% and she stood up and turned it back to 4L. PT is currently on 4L at the time of this note and sating well. Nursing Note:
--- NOTE | 2024-03-27 11:38 | PTTR_ITS ---
PT Notes Visit Reasons: Acute on chronic hypoxic respiratory failure, MEY, Inpatient Physical Therapy Treatment Note [facility] Date:03/27/2024 PRECAUTIONS:Continuous Oxygen ( currently at 4L/min per pt request., ) BiPAP, IV Access RUE SUBJECTIVE:Pt reports she feels better and can not wait to have the shower. Pt reports being concerned that her oxygen level is only96% on 4L as she has readings at home on 4L at 98-100%. 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 Pt motivated to walk and see how her oxygen level stays.? PAIN: intermittent pain to right side of face/ neck ( receiving radiation/ chemo to this area) VITALS: ? Pre-Treatment: 96 % on 4 L/min during amulation: 91-93% on 4 L/min ? Post-Treatment: 93% on 4 L/min returned to 96% within 3 mins ? Therapeutic Activities (54039: Direct one-on-one instruction in dynamic activities to improve functional performance. ? BED MOBILITY/TRANSFERS? Sit-stand: SBA? x 5 trials? Stand-sit: SBA x 5 trials ? w/c-Chair: SBA with FWW x 2 trials ? Chair-w/c: SBA with FWW x 2 trials Provided skilled cues and instruction on performance and technique throughout. Direct one-on-one instruction and skilled instruction in: [X] Patient education regarding pacing and breathing techniques to maximize activity tolerance? ambulation: monitor pulse ox during with portable 91-95% on 4 L/min? Assistive Device: FWW ? Weight bearing: Full Assist:SBA with w/c follow for safety , seated rest and oxygen? Distance:? 89 feet with one sit rest for 4 mins , After shower: 22 feet x 1 10 feet x 1 ? Deviation: decreased foot clearance , increased lateral weight shift. ? ASSESSMENT:?Pt tolerated treatment well able to maintain sats >91% on 4L/Min with activity. Pt with intermittent reports of lightheadedness with BP stable. Pt performs standing rest periods with forearm lean on her FWW. Pt noted with decreased functional activity tolerance in standing after her shower as compared to prior to shower. PLAN: 1-2x/day, 7 days/week x 1 week. Plan of care has been reviewed with the OFFSET MACHINE OPERATOR providing the service under Physical Therapy direction. Initiate Physical Therapy intervention for strengthening, bed mobility, transfers, gait, stairs, balance training, use of assistive device. TREATMENT CODE/TIME: 38919 / [id number], [id number] DISCHARGE RECOMMENDATION:Home with HHPT
[2024-03-27 11:42] VITALS: BP 113/68; PULSE 89; RESP 15; TEMP 36.2; O2SAT 96
--- NOTE | 2024-03-27 12:10 | CMDISCH_ITS ---
Date of service: 03/27/24 Time of Service: 12:10 LACE Index Scoring Tool Questions: Length of Stay (in days): 4 - 6 Was the patient admitted via the E.D.?: Yes Comorbidities: Metastatic Solid Tumor (Tongue Cancer) E.D. Visits: 1 Answers: Total Score: 13 Risk of Readmission: High Risk Care Management Discharge Plan Reason for Hospitalization: Acute on chronic hypoxic respiratory failure Discharge Plan: Discharge home with New VNA services local to her home in [place]. She will transport via private vehicle with her friend. Follow up with community providers and discharge plan of care as instructed. Patient/Family Education Needs: Review discharge instructions and plan to follow up with community providers (PCP, Oncology etc).Discuss ask me three. Services Needed at Discharge: Home Health Care Services (New RN/PT/MAINTENANCE TECHNICIAN 3RD SHIFT VNA through [facility]. [address] [place] [address]. [place] [phone]. P: or . F: .) ) SDOH Health Related Social Needs: No Data to Display
--- NOTE | 2024-03-27 14:11 | CMPROGNOTE_ITS ---
Care Management Progress Note Progress Note Text Progress Note Text: Fletcher was awake and sitting in a chair when CM met with her. She doesn't feel medically ready to discharge today as previously anticipated. Per pt, she felt dizzy while working with PT earlier today and feels her respiratory status has not returned to baseline. Nursing reports that Fletcher has been insistent that her O2 flow rate be set higher than recommended limits and has increased the flow rate herself despite recommendations. 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 Fletcher is planning on discharging home tomorrow if medically ready. She has her portable O2 concentrator here with her but doesn't have the finishing trimmer. CM notified nursing. Fletcher remains agreeable to New RN/PT/RECREATION FACILITY ATTENDANT services for additional support after discharge. Discharge Potential Discharge Needs: PT Evaluation, PCP F/U Appt and Other (Oncology) Anticipated Barriers to Discharge: Medical Status Patient/Family Education Needs: Review discharge instructions, discuss Ask Me Three Transportation: Private vehicle Plan: Discharge home via private vehicle with a friend. Close follow up with community providers and discharge plan of care as recommended. New [facility] ([place]/ [facility]) RN/PT/RECREATION FACILITY ATTENDANT. CM will follow and support discharge considerations. [facility] (Contact Information. [facility]. [address] [place] [address]. [place] [address]. P: or . F: .) SDOH(Care Management) Screening Will the Patient Participate in the Screening?: Yes Do you worry about having a steady place to live?: no Problems where you live: no known problems In the past 12 months, have you had to go without electric, gas, oil or water in your home?: no Have you or anyone in your house had to go without enough food to eat?: no Has lack of transportation kept you from medical appointments or from doing things needed for daily living?: no Has anyone in your support network made you feel unsafe for any reason?: no
[2024-03-27 15:35] VITALS: BP 112/74; PULSE 94; RESP 15; TEMP 35.9; O2SAT 95
--- NOTE | 2024-03-27 15:40 | PTTR_ITS ---
PT Notes Visit Reasons: Acute on chronic hypoxic respiratory failure, MEY, Inpatient Physical Therapy Treatment Note [facility] Date: 03/27/24 SUBJECTIVE: Fletcher reports that her room is very hot and is greatly affecting her breathing. OBJECTIVE: []? VITALS: ?pre O2 sat was 94%. it did drop to 89% mid ambulation. She sat x 3 min of which sats increased to 95%. Post session 95% Therapeutic Activities (07452y1): Direct one-on-one instruction in dynamic activities to improve functional performance. ? BED MOBILITY/TRANSFERS? pt in recliner? Sit-stand: SBA from recliner. CGA/min A from WC ? Stand-sit: CGA ? Provided skilled cues and instruction on performance and technique throughout. GAIT? Assistive Device: FWW? Weight bearing: AT Assist: SBA? Distance:?approx. 120' total with 3 sitting rest breaks and 3 standing res t breaks. ? ASSESSMENT:? pt felt as though the warmer temps were causing her SOB. She did end up putting her bi-pap machine on post ex as she thought she would take a nap. PLAN:continue to work on her endurance and functional mobility TREATMENT CODE/TIME: 35 min. [id number] DISCHARGE RECOMMENDATION: home with
--- NOTE | 2024-03-27 16:41 | W.PM.PROGNOT ---
Date of Service Date of service: 03/27/24 Time of Service: 16:42 Assessment and Plan Assessment and plan (1) Acute kidney injury superimposed on CKD: Status: Acute Assessment and plan: -Anuric renal failure on admission with fliud overload -Most c/w ATN from nephrotoxic chemotherapy, unable to mobilize IV fluids given with 03/23 chemotherapy. Her history of more mild MEY after her initial chemotherapy session is c/w this. -Sent FEUrea to help confirm, send out so still pending. -Urine output was excellent on furosemide drip, down 2 liters, stopped 03/25 evening to avoid overdiuresis. -electrolytes stable, creatinine continues to improve. -IV furosemide stopped 03/26, back on home bumex. -Still some symptoms, given her safety concern observe overnight again. (2) Acute on chronic hypoxic respiratory failure: Status: Acute Assessment and plan: -Secondary to anuria and fluid overload. -Currently back to baseline oxygen requirement. -No pneumonia on CXR(though limited), no fever or cough or white count. Elevated procalcitonin likely secondary to chemotherapy. No indication to continue treating pnuemonia. -now slight cough today, repeat viral swabs, monitor. -Likely component of right sided CHF. echocardiogram limited but enlarged RV consistent with previous findings. On 03/26 IVC was not dilated, collapses, suggesting she had been diuresed well. (3) Head and neck cancer: Status: Acute Assessment and plan: -It appears patient's chemo had a direct effect on patient's kidneys, as this pattern was noted after her first chemo session. -After acute hospitalization, patient will need to have discussion with her oncologist regarding chemotherapy regimen going forward. Radiation due Friday 03/30 at [facility], follow up with heme/onc after discharge. (4) Elevated LFTs: Status: Acute Assessment and plan: - May be secondary to some combination of other hepatic congestion and/or chemotherapy -Total bili 2 AST and ALT also elevated, all improved with diuresis. (5) DVT prophylaxis: Status: Acute Assessment and plan: on warfarin chronically, follow INR Subjective Subjective Patient reports: feels better, tolerating a regular diet and voiding w/o difficulty (harrell removed); denies diarrhea, nausea, vomiting or fever Interval history since last seen: Feels better. No longer feels swollen, but still tired. [place] lightheaded walking with PT. She is concerned about going home today living alone. Notes a slight cough, which is new. no other URI symptoms like runny nose. Exam Narrative Exam Narrative: Sitting up in chair, no respiratory distress at rest, speaking in full sentences, ANO x 4, 3L nasal cannula in place. heart regular rate rhythm, lungs clear bilaterally, no wheezing. Abdomen obese, soft, nontender, nondistended, lower extremity now +trace to +1 pitting to the shins, no weeping. Warm, stasis hyperpigmentation noted shins with one bandaged sore on lama on right. Objective Last Vital Signs Temp 35.9 C L 03/27/24 15:35 Pulse 94 H 03/27/24 15:35 Resp 15 03/27/24 15:35 BP 112/74 03/27/24 15:35 Pulse Ox 95 03/27/24 15:35 Laboratory Results - last 24 hr 03/25/24 03/27/24 10:28 05:45 PT 23.4 H INR 2.5 H Sodium 134 L Potassium 3.9 Chloride 93 L Carbon Dioxide 39.0 H Anion Gap 2.0 L BUN 72 H Creatinine 1.7 H Est GFR (CKD-EPI 2020) 32.46 Glucose 114 H Calcium 9.1 Urine Urea Nitrogen 269 Time Spent with Patient Time Spent with Patient: 35-49 minutes Time was spent: preparing to see the patient(eg.review tests), obtaining and/or reviewing separately otained hiistory, ordering medications,tests, procedures, referring, communicating with other health career technical supervisor, indepentently interpreting results, counseling the patient and care coordination
[2024-03-27 17:38] LABS: COVID-19 PCR Negative (Negative); Influenza A PCR Negative (Negative); Influenza B PCR Negative (Negative); RSV PCR Negative (Negative)
[2024-03-27 17:41] LABS: Source NASOPHARYNX
[2024-03-27 19:26] VITALS: BP 90/60; PULSE 64; RESP 19; TEMP 36.2; O2SAT 98
[2024-03-27 19:40] VITALS: O2SAT 97
[2024-03-27] MEDS: Nystatin POWDER 60 GM JAR TP (20:38)
[2024-03-27 23:46] VITALS: BP 140/66; PULSE 88; RESP 18; TEMP 36.2; O2SAT 97
[2024-03-28] MEDS: Polyethylene Glycol 3350 17 GM PACKET PO (00:17)
[2024-03-28] MEDS: oxyCODONE 5 MG TAB PO ×3 (00:17→13:03)
[2024-03-28] MEDS: Acetaminophen 325 MG TAB PO ×2 (03:46→11:15)
[2024-03-28 06:59] LABS: Anion Gap 1.3 mmol/L (3-11); BUN 74 mg/dL (7-18); CO2 37.7 mmol/L (21.0-32.0); CREATININE 1.6 mg/dL (0.55-1.02); Chloride 93 mmol/L (98-107); Estimated GFR 34.91 (mL/min/1.73m2); Glucose 137 mg/dL (74-106); Potassium 3.6 mmol/L (3.5-5.1); Sodium 132 mmol/L (136-145)
[2024-03-28 07:04] LABS: Calcium 8.9 mg/dL (8.5-10.1)
[2024-03-28 07:24] VITALS: BP 119/63; PULSE 95; RESP 15; TEMP 36.2; O2SAT 98
[2024-03-28] MEDS: Magic Mouthwash 119 ML BTL 10 ML MM ×2 (07:40→11:45)
[2024-03-28] MEDS: Normal Saline Flush 10 ML SYR IVP ×3 (08:18→08:19)
[2024-03-28 08:37] LABS: INR 2.9 (0.9-1.1); Prothrombin Time 26.2 sec (9.1-11.1)
[2024-03-28] MEDS: Potassium Chloride 10 MEQ TABCR PO (08:37)
[2024-03-28] MEDS: dilTIAZem CD 120 MG CAPCR PO (08:37)
[2024-03-28] MEDS: Bumetanide 1 MG TAB PO (08:37)
[2024-03-28] MEDS: Allopurinol 100 MG TAB 200 MG PO (08:37)
[2024-03-28] MEDS: Senna TAB 1 TAB PO (11:15)
--- NOTE | 2024-03-28 11:20 | PTTR_ITS ---
PT Notes Visit Reasons: Acute on chronic hypoxic respiratory failure, MEY, Inpatient Physical Therapy Treatment Note [facility] Date: 03/28/24 SUBJECTIVE: Fletcher states that she does not want to walk today. I have been up to the bathroom twice so far, and that's enough for now. She reports feeling steady on her feet while going to toilet and back to chair. OBJECTIVE: []? VITALS: ? [place] [facility] [place] Therapeutic Activities ([id number]): Direct one-on-one instruction in dynamic activities to improve functional performance. ? BED MOBILITY/TRANSFERS? Sit-stand: I? Stand-sit: I ? Provided skilled cues and instruction on performance and technique throughout. GAIT? Assistive Device: FWW ? Weight bearing: full Assist:S? Distance:?2x10' ? ASSESSMENT:? pt transfers in room with supervision only. She got herself to toilet and back safely. Able to stand and wash her hands without LOB or increase in SOB. Not agreeable to PT today, as she feels she has done enough today. PLAN: will continue to work on functional mobility/energy conservation to tolerance following PT POC. TREATMENT CODE/TIME: 15 min [id number]
--- NOTE | 2024-03-28 12:09 | NUR.NOTE ---
I answered a call light for Fletcher Mtz. She was upset by a phone call, she asked me to help the man on the phone. I answered the phone and he was asking for respiratory, i let him know that they are not on this floor and that he would need to call them. He kept asking me to put them on the phone. This man was rude a pushy. He then asked why we couldn't get her prop attendant for her o2.. I told him he would need to call the front end driver and speak to the nurse as i can not share any information on our pt. He asked to speak to the pt, i let him know she has the same information as i do. He asked to speak to her again and so i asked her if she would like to speak to him and she started crying and said no. I let him know she was all done talking and he hung up on me. The pt stated that when she was on the phone he told her to have her mother get the cord etc and she was upset because her mother has .
--- NOTE | 2024-03-28 12:47 | PDOC.HHF2F_ITS ---
Home Health Referral Home Health Orders Clinical synopsis of why skilled professionals are needed: 68 yo F with history of chronic respiratory failure on home oxygen non-invasive ventilator, CKD3a, right sided heart failure, and being treated with chemotherapy and radiation for tongue cancer who was admitted with anuric renal failure and fluid overload after her radiation and chemotherapy. She was started on a furosemide drip and diursed well over the first 24 hours, was transitioned to IV push furosemide 80mg, then to her baseline oral bumetanide with ongoing good urine output and improvement in her creatinine from 2.6 on admission down to 1.6 on the morning of discharge. It appears that her chemotherapy may be renally toxic as she had a creatinine bump after her first dose as well. She will meet with her oncologist 03/30 to decide if this medication should be continued. She should have another BMP before that appointment. She had increased oxygen need on admission but was back to her baseline 3 liters after the first 24 hours of diuresis. Her BNaP was elevated to 6635. Her echocardiogram was repeated, with results limited by her body habitus and lack of mobility, but showing normal LVEF and enlarged right ventricle. She likely has some right heart failure. At the time of her echo after 2 days of diuresis her IVC was normal in size and collapsing >50% wiht inspiration, and at this time she was back on her home diuretic dose. AST/ALT and bilirubin were elevated but improved with diuresis. Lactate was elevated at 3.2 but also improved. She was given one dose of antibiotics in the emergency room but this was no continued. Her INR was 4.0 on admission and warfarin was held, but resumed the following day and was 2.9 at discharge. Her outpatient dosing was not changed. Home health was recommended to monitor clinically and continue PT for mobility Medical diagnosis necessitation home health referral: Acute on chronic renal insufficiency, respiratory failure, right sided CHF, limited mobility Registered Nurse: Check all that apply Assess for exacerbation of medical condition, instruct patient/caregivers on signs and symptoms to report for early detection: Ordered Physical Therapist: Check all that apply Increase strength & endurance for safe mobility at home: Ordered To design/establish home maintenance program: Ordered Wire Frame Lamp Shade Maker: Assist with community resources: Ordered Assist with custodial care planning: Ordered Home Bound Status Requires the aid of supportive device (check all that apply): Walker Describe why leaving home would require a considerable and taxing effort: Side effects from pain medication (sedation/drowsiness) and Requires frequent rest periods Encounter Date and Reason: I certify that a FTF encounter for this patient was performed on March 28, 2024 and that such encounter was related to the primary reason the patient requires home health services. The encounter was conducted in the following manner: * By me as the certifying physician, ZIG ZAG SPRING MACHINE OPERATOR, PA or * By an inpatient physician, ZIG ZAG SPRING MACHINE OPERATOR or PA during an inpatient stay who communicated findings to me, Certification And Authentication I certify that I composed the above information based on my clinical judgment relating to this patient's medical condition and, if applicable, clinical findings communicated to me by the NPP or inpatient physician who performed the FTF encounter. Name of Provider that will be monitoring home health services: OMAR JEFFRIES
--- NOTE | 2024-03-28 12:49 | DSE_ITS ---
Date of service: 03/28/24 Time of Service: 12:50 DS: Diagnosis Discharge Diagnosis (1) Acute kidney injury superimposed on CKD: Status: Acute (2) Acute on chronic hypoxic respiratory failure: Status: Acute (3) Head and neck cancer: Status: Acute (4) Elevated LFTs: Status: Acute (5) DVT prophylaxis: Status: Acute Discharge Plan Disposition Patient Disposition: Home W/Home Health Services Condition: Stable Discharge Details Reason For Visit: Acute on chronic hypoxic respiratory failure, MEY, Admit Date/Time: 03/24/24 14:51 Admit Provider: Colten Koo Attending Provider: Colten Koo Primary Care Provider: Arelis Ventura Hospital Course Hospital Course: 68 yo F with history of chronic respiratory failure on home oxygen non-invasive ventilator, CKD3a, right sided heart failure, and being treated with chemotherapy and radiation for tongue cancer who was admitted with anuric renal failure and fluid overload after her radiation and chemotherapy. She was started on a furosemide drip and diursed well over the first 24 hours, was transitioned to IV push furosemide 80mg, then to her baseline oral bumetanide with ongoing good urine output and improvement in her creatinine from 2.6 on admission down to 1.6 on the morning of discharge. It appears that her chemotherapy may be renally toxic as she had a creatinine bump after her first dose as well. She will meet with her oncologist 03/30 to decide if this medication should be continued. She should have another BMP before that appointment. She had increased oxygen need on admission but was back to her baseline 3 liters after the first 24 hours of diuresis. Her BNaP was elevated to 6635. Her echocardiogram was repeated, with results limited by her body habitus and lack of mobility, but showing normal LVEF and enlarged right ventricle. She likely has some right heart failure. At the time of her echo after 2 days of diuresis her IVC was normal in size and collapsing >50% wiht inspiration, and at this time she was back on her home diuretic dose. AST/ALT and bilirubin were elevated but improved with diuresis. Lactate was elevated at 3.2 but also improved. She was given one dose of antibiotics in the emergency room but this was no continued. Her INR was 4.0 on admission and warfarin was held, but resumed the following day and was 2.9 at discharge. Her outpatient dosing was not changed. Home health was recommended to monitor clinically and continue PT for mobility Home Meds and New Rx's Prescriptions: New polyethylene glycol 3350 17 gram Powder In Packet 17 g PO DAILY PRN PRN (Reason: Constipation) Qty: 0 0RF sennosides [Senokot] 8.6 mg Tablet 8.6 mg PO BID PRN PRNQty: 0 0RF Continued olanzapine 5 mg tablet Patient Comments: PRN for nausea never taken potassium chloride 10 mEq tablet extended release 10 meq PO DAILY Patient Comments: take 1 tablet by mouth once daily FOR POTASSIUM REPLACEMENT, PLEA... (REFER TO PRESCRIPTION NOTES). megestrol 40 mg tablet PO QID Patient Comments: TAKE 1 TABLET BY MOUTH 4 TIMES DAILY lidocaine HCl 2 % solution Patient Comments: TAKE 5 MILLILITERS BY MOUTH EVERY 4 HOURS NEEDED FOR PAIN oxycodone 5 mg tablet 5 mg PO Q4H PRN Patient Comments: take 1 tablet by mouth every 4 hours if needed for pain diltiazem HCl [Cartia XT] 120 mg capsule,extended release 24hr 120 mg PO QAM Patient Comments: take 1 capsule by mouth once daily bumetanide 0.5 mg tablet 1 mg PO BID Patient Comments: take 2 tablets by mouth twice a day allopurinol 100 mg tablet 200 mg PO DAILY Patient Comments: take 2 tablets by mouth daily nystatin [Nyamyc] 100,000 unit/gram powder 1 applic TOPICAL PRN Patient Comments: APPLY A SMALL AMOUNT TO SKIN TWICE DAILY NEEDED FOR RASHES. warfarin 2.5 mg tablet 2.5 mg Patient Comments: TAKE 2 TABLETS BY MOUTH ONCE A DAY ON SATURDAY, SATURDAY AND ... (REFER TO PRESCRIPTION NOTES). Discharge Instructions Instructions: Kidney Failure (DC) Additional Instructions: Your kidneys are recovering but are still not 100%. You should avoid NSAID medications. You should repeat kidney function before your Saturday appointment at the cancer center. You should continue all of your previous medications. You should take over the counter senna 1-2x day and polyethylene glycol (Miralax) as needed while you are on pain medication to maintain good bowel function. You can get over the counter children's Benadryl (diphenhydramine) and liquid Maalox or similar to mix with your lidocaine for mouth pain. This is the mixture we were giving you here. Stand Alone Forms: Nursing Discharge Form Referrals: Arelis Ventura [Primary Care Provider] - (Please call the office on Saturday to set up a hospital follow up ) Activity:: Activity as Tolerated Equipment/Supplies:: No Equipment Needed Diet:: Low Sodium Discharge Orders Discharge Orders: Discharge Order (Routine); Ordered 03/28/24 Ordered By: Kaushik Franklin Other Ambulatory Orders: Basic Metabolic Panel (Routine) Timeframe: 2 Days Facility: [facility] - Location: Laboratory Outpatient - [facility] Ordered By: Kaushik Franklin Discharge Data Discharge Date/Time-TO BE ENTERED AT DEPARTURE: 03/28/24 15:44 DS: Summary Time Spent with Patient providing and/or coordinating discharge services: Greater than 30 minutes Status at Discharge Functional status at discharge: uses cane/walker Overall status at discharge: patient is back to baseline Mental Status: mental status grossly normal Speech and Movement: speech and movement normal Mood: congruent mood Affect: normal affect Quality:SDOH Health Related Social Needs: No Data to Display Exam Narrative Exam Narrative: Sitting up in chair, no respiratory distress at rest, speaking in full sentences, ANO x 4, 3L nasal cannula in place. heart regular rate rhythm, lungs clear bilaterally, no wheezing. Abdomen obese, soft, nontender, nondistended, lower extremity now trace to +1 pitting to the shins, no weeping. Warm, stasis hyperpigmentation noted shins with one bandaged sore on lama on right. Psych Mental Status: mental status grossly normal Speech and Movement: speech and movement normal Mood: congruent mood Affect: normal affect DS: Data Vitals/I&O Vitals and I&O: Vital Signs Temperature 36.2 C L 03/28/24 07:24 Temperature Source Temporal Artery Scan 03/28/24 07:24 Pulse 95 H 03/28/24 07:24 Pulse 106 H 03/25/24 16:59 Respiratory Rate 15 03/28/24 07:24 Respiratory Effort Short of Breath, Labored, Incrsd Work of Breathing 03/24/24 18:00 Respiratory Depth Shallow 03/24/24 18:00 Respiratory Pattern Tachypnea 03/24/24 18:00 Blood Pressure 119/63 03/28/24 07:24 Blood Pressure Mean 119 03/25/24 16:59 Blood Pressure Position Sitting 03/24/24 16:33 Pulse Oximetry 98 12/28/24 07:24 Oxygen Delivery Method Nasal Cannula 03/28/24 07:24 Oxygen Flow Rate 4 03/28/24 07:24 Pain Level 0 03/28/24 07:24 Comment RN notified 03/26/24 15:17 Intake & Output 03/27/24 03/28/24 03/28/24 23:59 11:59 23:59 Intake Total 1110 / 1350 430 / 430 Output Total 700 / 2800 1050 / 1050 Balance 410 / -1450 -620 / -620 Intake: IV Oral 1100 / 1340 400 / 400 Output: Urine 700 / 2800 1050 / 1050 Other: Urine Color Yellow Yellow Urine Appearance Clear Clear Urine Odor None None Data Completed and Pending Labs on day of discharge: Labs from last 24 hours 03/28/24 03/28/24 03/27/24 08:20 06:00 16:47 PT 26.2 H INR 2.9 H Sodium 132 L Potassium 3.6 Chloride 93 L Carbon Dioxide 37.7 H Anion Gap 1.3 L BUN 74 H Creatinine 1.6 H Est GFR (CKD-EPI 2020) 34.91 Glucose 137 H Calcium 8.9 COVID-19 Source NASOPHARYNX SARS-CoV-2 (PCR) Negative Influenza Type A (PCR) Negative Influenza Type B (PCR) Negative RSV (PCR) Negative Preliminary micro results at discharge 03/24/24 14:07 Blood Culture - Preliminary Blood NO GROWTH 72 HOURS 03/24/24 13:44 Blood Culture - Preliminary Blood NO GROWTH 72 HOURS PFSH All Active Problems (Updated 03/25/24 @ 09:49 by Kaushik Franklin) DVT prophylaxis (Acute) Elevated LFTs (Acute) Lactic acid acidosis (Acute) Anuria (Acute) Oliguria (Acute) Head and neck cancer (Acute) Acute kidney injury superimposed on CKD (Acute) Acute kidney injury (Acute) Acute on chronic hypoxic respiratory failure (Acute) Social History Smoking/Tobacco Use Status: Never Smoking risk assessment performed?: Yes Alcohol Intake: never Drug use: Never Substance use type: does not use Housing: house Time Spent with Patient Time Spent with Patient: 45-69 minutes Time was spent: preparing to see the patient(eg.review tests), obtaining and/or reviewing separately otained hiistory, ordering medications,tests, procedures, referring, communicating with other health child care aide, indepentently interpreting results, counseling the patient and care coordination
--- NOTE | 2024-03-28 16:05 | CMDISCH_ITS ---
Date of service: 03/28/24 Time of Service: 16:05 LACE Index Scoring Tool Questions: Length of Stay (in days): 4 - 6 Was the patient admitted via the E.D.?: Yes Comorbidities: Chronic Pulmonary Disease and Liver or Renal Disease E.D. 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 She will follow up with her community providers and plan of care and transport with a friend. Patient/Family Education Needs: Review discharge instructions, limitations, follow up plan and discuss Ask Me Three Services Needed at Discharge: Home Health Care Services SDOH Health Related Social Needs: No Data to Display
== END 2024-03-28 15:44 | disposition home health service (06) | DRG 682 ==
LOC: ER 15:03 → ICU 18:05 → MS 03-25 18:06
PROVIDERS: Family Medicine; Admitting Provider Family Medicine; Emergency Provider Physician Assistant; PCP Family Medicine; Visit Provider Family Medicine
DX: N17.0 Acute kidney failure with tubular necrosis (principal); J96.21 Acute and chronic respiratory failure with hypoxia; E87.21 Acute metabolic acidosis; Z68.44 Body mass index [BMI] 60.0-69.9, adult; C02.9 Malignant neoplasm of tongue, unspecified; N18.31 Chronic kidney disease, stage 3a; I50.810 Right heart failure, unspecified; E66.01 Morbid (severe) obesity due to excess calories; T45.1X5A Adverse effect of antineoplastic and immunosuppressive drugs, initial encounter; Z99.81 Dependence on supplemental oxygen; Z79.899 Other long term (current) drug therapy; I87.2 Venous insufficiency (chronic) (peripheral)
CPT/HCPCS: 00123; 36415; 36591; 80048; 80053; 82805; 83690; 84145; 85027; 87040; 87637; 93005; 93306; 96365; 96366; 96368; 97162; 97530; 99285; 71045; 81003; 81015; 82565; 83605; 83735; 83880; 84484; 84540; 85025; 85610; 85730; 93010; 99223; 99233; 99239; J0456; J0696; J1940

== ENCOUNTER 2024-03-30 02:15 | Outpatient (RCR) | payer MEDICARE, SELFPAY ==
[2024-03-16] MEDS: Normal Saline Flush 10 ML SYR IVP (08:43)
[2024-03-16 09:01] LABS: Abs Immature Grans 0.07 10^3/uL (0.0-0.06); Absolute Basophil Count 0.03 10^3/uL (0.0-0.2); Absolute Eosinophil Count 0.09 10^3/uL (0.0-0.7); Absolute Lymphocyte Count 1.54 10^3/uL (1.2-3.4); Absolute Monocyte Count 0.49 10^3/uL (0.1-0.8); Absolute Neutrophil Count 6.36 10^3/uL (1.2-6.7); Basophils % 0.3 %; HCT 43.2 % (36.0-46.0); HGB 14.1 g/dL (11.2-15.7); Immature Grans % 0.8 %; Lymphocytes % 17.9 %; MCH 31.2 pg (27.0-33.0); MCHC 32.6 % (32.0-36.0); MCV 96 fL (80-95); MPV 10.4 fL (8.0-11.0); Monocytes % 5.7 %; Neutrophils % 74.3 %; Platelet Count 204 10^3/uL (130-400); RBC 4.52 10^6/uL (3.93-5.22); RDW 14.6 % (11.7-14.6); RDW-SD 50.8 fL; WBC 8.58 10^3/uL (4.4-10.8)
[2024-03-16 09:16] LABS: ALT 18 U/L (14-59); AST 17 U/L (15-37); Albumin 3.5 g/dL (3.4-5.0); Alkaline Phosphatase 50 U/L (46-116); Anion Gap 6.7 mmol/L (3-11); BUN 60 mg/dL (7-18); CO2 36.3 mmol/L (21.0-32.0); CREATININE 1.6 mg/dL (0.55-1.02); Calcium 9.6 mg/dL (8.5-10.1); Chloride 95 mmol/L (98-107); Estimated GFR 34.91 (mL/min/1.73m2); Glucose 143 mg/dL (74-106); Magnesium 1.4 mg/dL (1.8-2.4); Potassium 3.5 mmol/L (3.5-5.1); Sodium 138 mmol/L (136-145); Total Protein 8.2 g/dL (6.4-8.2)
[2024-03-23 09:06] LABS: Abs Immature Grans 0.05 10^3/uL (0.0-0.06); Absolute Basophil Count 0.02 10^3/uL (0.0-0.2); Absolute Eosinophil Count 0.14 10^3/uL (0.0-0.7); Absolute Lymphocyte Count 0.64 10^3/uL (1.2-3.4); Absolute Monocyte Count 0.26 10^3/uL (0.1-0.8); Absolute Neutrophil Count 5.19 10^3/uL (1.2-6.7); Basophils % 0.3 %; Eosinophils % 2.2 %; HGB 12.9 g/dL (11.2-15.7); Immature Grans % 0.8 %; Lymphocytes % 10.2 %; MCH 30.9 pg (27.0-33.0); MCHC 31.5 % (32.0-36.0); MCV 98 fL (80-95); MPV 10.9 fL (8.0-11.0); Monocytes % 4.1 %; Neutrophils % 82.4 %; Platelet Count 137 10^3/uL (130-400); RBC 4.17 10^6/uL (3.93-5.22); RDW-SD 53.4 fL
[2024-03-23 09:30] LABS: ALT 18 U/L (14-59); AST 19 U/L (15-37); Albumin 3.2 g/dL (3.4-5.0); Alkaline Phosphatase 48 U/L (46-116); Anion Gap 3.3 mmol/L (3-11); BUN 53 mg/dL (7-18); Bilirubin, Total 1.57 mg/dL (0.2-1.0); CO2 39.7 mmol/L (21.0-32.0); CREATININE 1.3 mg/dL (0.55-1.02); Calcium 9.4 mg/dL (8.5-10.1); Chloride 95 mmol/L (98-107); Estimated GFR 44.79 (mL/min/1.73m2); Glucose 135 mg/dL (74-106); Magnesium 2.1 mg/dL (1.8-2.4); Potassium 3.5 mmol/L (3.5-5.1); Sodium 138 mmol/L (136-145); Total Protein 7.6 g/dL (6.4-8.2)
[2024-03-23] MEDS: Normal Saline Flush 10 ML SYR IVP (12:13)
[2024-03-30] MEDS: Normal Saline Flush 10 ML SYR IVP (08:30)
[2024-03-30 08:52] LABS: Abs Immature Grans 0.08 10^3/uL (0.0-0.06); Absolute Basophil Count 0.04 10^3/uL (0.0-0.2); Absolute Eosinophil Count 0.34 10^3/uL (0.0-0.7); Absolute Lymphocyte Count 0.84 10^3/uL (1.2-3.4); Absolute Neutrophil Count 2.83 10^3/uL (1.2-6.7); Basophils % 0.9 %; Eosinophils % 7.9 %; HCT 39.2 % (36.0-46.0); HGB 12.3 g/dL (11.2-15.7); Immature Grans % 1.8 %; Lymphocytes % 19.4 %; MCH 30.7 pg (27.0-33.0); MCHC 31.4 % (32.0-36.0); MCV 98 fL (80-95); MPV 10.7 fL (8.0-11.0); Monocytes % 4.6 %; Neutrophils % 65.4 %; Platelet Count 117 10^3/uL (130-400); RBC 4.01 10^6/uL (3.93-5.22); RDW 14.7 % (11.7-14.6); RDW-SD 53.4 fL; WBC 4.33 10^3/uL (4.4-10.8)
[2024-03-30 09:10] LABS: ALT 26 U/L (14-59); AST 17 U/L (15-37); Albumin 2.9 g/dL (3.4-5.0); Alkaline Phosphatase 45 U/L (46-116); Anion Gap 6.9 mmol/L (3-11); BUN 59 mg/dL (7-18); Bilirubin, Total 0.76 mg/dL (0.2-1.0); CO2 36.1 mmol/L (21.0-32.0); CREATININE 1.4 mg/dL (0.55-1.02); Calcium 8.9 mg/dL (8.5-10.1); Chloride 92 mmol/L (98-107); Estimated GFR 40.98 (mL/min/1.73m2); Glucose 128 mg/dL (74-106); Magnesium 1.6 mg/dL (1.8-2.4); Potassium 3.7 mmol/L (3.5-5.1); Sodium 135 mmol/L (136-145); Total Protein 7.1 g/dL (6.4-8.2)
[2024-03-30 09:53] LABS: Diff Comment Manual Differential
== END 2024-03-31 23:59 | disposition home or self-care (01) ==
LOC: INF 02:15
PROVIDERS: Internal Medicine Hematology; PCP Family Medicine; Visit Provider Nurse Practitioner
DX: C02.9 Malignant neoplasm of tongue, unspecified (principal); Z45.2 Encounter for adjustment and management of vascular access device
CPT/HCPCS: 36591; 80053; 83735; 85025

== ENCOUNTER 2024-04-20 01:44 | Outpatient (RCR) | payer MEDICAID, SELFPAY ==
[2024-04-06] MEDS: Normal Saline Flush 10 ML SYR IVP (08:25)
[2024-04-06 08:49] LABS: Abs Immature Grans 0.02 10^3/uL (0.0-0.06); Absolute Basophil Count 0.02 10^3/uL (0.0-0.2); Absolute Eosinophil Count 0.16 10^3/uL (0.0-0.7); Absolute Lymphocyte Count 0.53 10^3/uL (1.2-3.4); Absolute Monocyte Count 0.29 10^3/uL (0.1-0.8); Absolute Neutrophil Count 1.11 10^3/uL (1.2-6.7); Basophils % 0.9 %; Eosinophils % 7.5 %; HCT 38.7 % (36.0-46.0); HGB 12.1 g/dL (11.2-15.7); Immature Grans % 0.9 %; Lymphocytes % 24.9 %; MCH 31.8 pg (27.0-33.0); MCHC 31.3 % (32.0-36.0); MCV 102 fL (80-95); MPV 9.9 fL (8.0-11.0); Monocytes % 13.6 %; Neutrophils % 52.2 %; Platelet Count 160 10^3/uL (130-400); RBC 3.81 10^6/uL (3.93-5.22); RDW 16.2 % (11.7-14.6); RDW-SD 59.6 fL; WBC 2.13 10^3/uL (4.4-10.8)
[2024-04-06 09:13] LABS: ALT 27 U/L (14-59); AST 27 U/L (15-37); Albumin 3.1 g/dL (3.4-5.0); Alkaline Phosphatase 51 U/L (46-116); Anion Gap 0.1 mmol/L (3-11); BUN 43 mg/dL (7-18); Bilirubin, Total 0.99 mg/dL (0.2-1.0); CO2 41.9 mmol/L (21.0-32.0); CREATININE 1.4 mg/dL (0.55-1.02); Calcium 9.4 mg/dL (8.5-10.1); Chloride 98 mmol/L (98-107); Estimated GFR 40.98 (mL/min/1.73m2); Glucose 123 mg/dL (74-106); Sodium 140 mmol/L (136-145); Total Protein 7.4 g/dL (6.4-8.2)
[2024-04-06 09:46] LABS: Magnesium 2.1 mg/dL (1.8-2.4)
[2024-04-15] MEDS: Normal Saline Flush 10 ML SYR IVP (11:39)
[2024-04-15 11:44] LABS: Abs Immature Grans 0.05 10^3/uL (0.0-0.06); Absolute Basophil Count 0.03 10^3/uL (0.0-0.2); Absolute Eosinophil Count 0.09 10^3/uL (0.0-0.7); Absolute Lymphocyte Count 0.71 10^3/uL (1.2-3.4); Absolute Monocyte Count 0.62 10^3/uL (0.1-0.8); Absolute Neutrophil Count 2.53 10^3/uL (1.2-6.7); Basophils % 0.7 %; Eosinophils % 2.2 %; HCT 36.7 % (36.0-46.0); HGB 11.3 g/dL (11.2-15.7); Immature Grans % 1.2 %; Lymphocytes % 17.6 %; MCH 31.7 pg (27.0-33.0); MCHC 30.8 % (32.0-36.0); MCV 103 fL (80-95); MPV 9.5 fL (8.0-11.0); Monocytes % 15.4 %; Neutrophils % 62.9 %; Platelet Count 244 10^3/uL (130-400); RBC 3.57 10^6/uL (3.93-5.22); RDW 17.3 % (11.7-14.6); RDW-SD 65.2 fL; WBC 4.03 10^3/uL (4.4-10.8)
[2024-04-15 11:59] LABS: Anion Gap 1.8 mmol/L (3-11); BUN 43 mg/dL (7-18); CO2 40.2 mmol/L (21.0-32.0); CREATININE 1.5 mg/dL (0.55-1.02); Calcium 9.9 mg/dL (8.5-10.1); Chloride 98 mmol/L (98-107); Estimated GFR 37.72 (mL/min/1.73m2); Glucose 110 mg/dL (74-106); Magnesium 1.9 mg/dL (1.8-2.4); Potassium 4.2 mmol/L (3.5-5.1); Sodium 140 mmol/L (136-145)
[2024-04-20] MEDS: Normal Saline Flush 10 ML SYR IVP (08:00)
[2024-04-20 08:14] LABS: Abs Immature Grans 0.05 10^3/uL (0.0-0.06); Absolute Basophil Count 0.05 10^3/uL (0.0-0.2); Absolute Eosinophil Count 0.03 10^3/uL (0.0-0.7); Absolute Lymphocyte Count 0.44 10^3/uL (1.2-3.4); Absolute Neutrophil Count 4.17 10^3/uL (1.2-6.7); Basophils % 0.9 %; Eosinophils % 0.6 %; HCT 37.4 % (36.0-46.0); HGB 11.4 g/dL (11.2-15.7); Immature Grans % 0.9 %; Lymphocytes % 8.2 %; MCH 31.8 pg (27.0-33.0); MCHC 30.5 % (32.0-36.0); MCV 104 fL (80-95); MPV 10.2 fL (8.0-11.0); Monocytes % 11.2 %; Neutrophils % 78.2 %; Platelet Count 229 10^3/uL (130-400); RBC 3.59 10^6/uL (3.93-5.22); RDW 17.4 % (11.7-14.6); RDW-SD 67.3 fL; WBC 5.34 10^3/uL (4.4-10.8)
[2024-04-20 08:43] LABS: ALT 25 U/L (14-59); AST 26 U/L (15-37); Albumin 2.6 g/dL (3.4-5.0); Alkaline Phosphatase 51 U/L (46-116); Anion Gap -0.9 mmol/L (3-11); BUN 32 mg/dL (7-18); Bilirubin, Total 0.73 mg/dL (0.2-1.0); CO2 40.9 mmol/L (21.0-32.0); CREATININE 1.3 mg/dL (0.55-1.02); Calcium 9.4 mg/dL (8.5-10.1); Chloride 98 mmol/L (98-107); Estimated GFR 44.79 (mL/min/1.73m2); Glucose 125 mg/dL (74-106); Potassium 4.2 mmol/L (3.5-5.1); Sodium 138 mmol/L (136-145); Total Protein 7.7 g/dL (6.4-8.2)
== END 2024-05-01 23:59 | disposition home or self-care (01) ==
LOC: INF 01:44
PROVIDERS: Internal Medicine Hematology; Preventive Medicine Undersea and Hyperbaric Medicine; PCP Family Medicine; Visit Provider Nurse Practitioner
DX: C02.9 Malignant neoplasm of tongue, unspecified (principal); C14.8 Malignant neoplasm of overlapping sites of lip, oral cavity and pharynx
CPT/HCPCS: 36591; 80048; 80053; 83735; 85025

== ENCOUNTER 2024-05-06 09:00 | Outpatient (RCR) | payer MEDICAID, SELFPAY ==
[2024-05-06] MEDS: Normal Saline Flush 10 ML SYR IVP (09:19)
[2024-05-06 09:23] LABS: Abs Immature Grans 0.03 10^3/uL (0.0-0.06); Absolute Basophil Count 0.03 10^3/uL (0.0-0.2); Absolute Eosinophil Count 0.12 10^3/uL (0.0-0.7); Absolute Lymphocyte Count 0.36 10^3/uL (1.2-3.4); Absolute Monocyte Count 0.61 10^3/uL (0.1-0.8); Absolute Neutrophil Count 4.85 10^3/uL (1.2-6.7); Basophils % 0.5 %; HCT 35.8 % (36.0-46.0); HGB 11.2 g/dL (11.2-15.7); Immature Grans % 0.5 %; MCH 32.1 pg (27.0-33.0); MCHC 31.3 % (32.0-36.0); MCV 103 fL (80-95); Monocytes % 10.2 %; Neutrophils % 80.8 %; Platelet Count 190 10^3/uL (130-400); RBC 3.49 10^6/uL (3.93-5.22); RDW 17.5 % (11.7-14.6); RDW-SD 66.3 fL
[2024-05-06 09:44] LABS: ALT 42 U/L (14-59); AST 35 U/L (15-37); Alkaline Phosphatase 51 U/L (46-116); Anion Gap 2.5 mmol/L (3-11); BUN 46 mg/dL (7-18); Bilirubin, Total 1.01 mg/dL (0.2-1.0); CO2 40.5 mmol/L (21.0-32.0); CREATININE 1.5 mg/dL (0.55-1.02); Calcium 10.1 mg/dL (8.5-10.1); Chloride 92 mmol/L (98-107); Estimated GFR 37.72 (mL/min/1.73m2); Glucose 134 mg/dL (74-106); Magnesium 2.2 mg/dL (1.8-2.4); Potassium 3.7 mmol/L (3.5-5.1); Sodium 135 mmol/L (136-145); Total Protein 7.9 g/dL (6.4-8.2)
== END 2024-05-29 23:59 | disposition home or self-care (01) ==
LOC: INF 09:00
PROVIDERS: PCP Family Medicine; Visit Provider Nurse Practitioner
DX: C02.9 Malignant neoplasm of tongue, unspecified (principal)
CPT/HCPCS: 36591; 80053; 83735; 85025

== ENCOUNTER 2024-06-29 01:34 | Outpatient (RCR) | payer MEDICAID, SELFPAY ==
[2024-06-01] MEDS: Normal Saline Flush 10 ML SYR IVP (08:44)
[2024-06-01 09:09] LABS: Abs Immature Grans 0.02 10^3/uL (0.0-0.06); Absolute Basophil Count 0.03 10^3/uL (0.0-0.2); Absolute Eosinophil Count 0.18 10^3/uL (0.0-0.7); Absolute Lymphocyte Count 0.66 10^3/uL (1.2-3.4); Absolute Monocyte Count 0.44 10^3/uL (0.1-0.8); Absolute Neutrophil Count 3.92 10^3/uL (1.2-6.7); Basophils % 0.6 %; Eosinophils % 3.4 %; HCT 36.7 % (36.0-46.0); HGB 11.5 g/dL (11.2-15.7); Immature Grans % 0.4 %; Lymphocytes % 12.6 %; MCH 32.8 pg (27.0-33.0); MCHC 31.3 % (32.0-36.0); MCV 105 fL (80-95); MPV 10.1 fL (8.0-11.0); Monocytes % 8.4 %; Neutrophils % 74.6 %; Platelet Count 188 10^3/uL (130-400); RBC 3.51 10^6/uL (3.93-5.22); RDW 15.8 % (11.7-14.6); RDW-SD 61.6 fL; WBC 5.25 10^3/uL (4.4-10.8)
[2024-06-01 09:36] LABS: ALT 29 U/L (14-59); AST 27 U/L (15-37); Albumin 3.2 g/dL (3.4-5.0); Alkaline Phosphatase 48 U/L (46-116); Anion Gap 5.5 mmol/L (3-11); BUN 47 mg/dL (7-18); Bilirubin, Total 1.03 mg/dL (0.2-1.0); CO2 38.5 mmol/L (21.0-32.0); CREATININE 1.5 mg/dL (0.55-1.02); Calcium 10.2 mg/dL (8.5-10.1); Chloride 95 mmol/L (98-107); Estimated GFR 37.72 (mL/min/1.73m2); Glucose 116 mg/dL (74-106); Magnesium 1.9 mg/dL (1.8-2.4); Potassium 3.8 mmol/L (3.5-5.1); Sodium 139 mmol/L (136-145); Total Protein 7.8 g/dL (6.4-8.2)
== END 2024-06-29 23:59 | disposition home or self-care (01) ==
LOC: INF 01:34
PROVIDERS: PCP Family Medicine; Visit Provider Internal Medicine Hematology
DX: C02.9 Malignant neoplasm of tongue, unspecified (principal)
CPT/HCPCS: 36591; 80053; 83735; 85025

== ENCOUNTER 2024-07-06 03:00 | Outpatient (RCR) | payer MEDICAID, SELFPAY ==
[2024-07-06 09:12] LABS: Abs Immature Grans 0.01 10^3/uL (0.0-0.06); Absolute Basophil Count 0.02 10^3/uL (0.0-0.2); Absolute Eosinophil Count 0.15 10^3/uL (0.0-0.7); Absolute Lymphocyte Count 0.65 10^3/uL (1.2-3.4); Absolute Monocyte Count 0.51 10^3/uL (0.1-0.8); Absolute Neutrophil Count 4.35 10^3/uL (1.2-6.7); Basophils % 0.4 %; Eosinophils % 2.6 %; HCT 37.2 % (36.0-46.0); HGB 11.7 g/dL (11.2-15.7); Immature Grans % 0.2 %; Lymphocytes % 11.4 %; MCH 33.1 pg (27.0-33.0); MCHC 31.5 % (32.0-36.0); MPV 10.5 fL (8.0-11.0); Neutrophils % 76.4 %; Platelet Count 158 10^3/uL (130-400); RBC 3.54 10^6/uL (3.93-5.22); RDW-SD 54.4 fL; WBC 5.69 10^3/uL (4.4-10.8)
[2024-07-06] MEDS: Normal Saline Flush 10 ML SYR IVP (09:12)
[2024-07-06 09:13] LABS: MCV 105 fL (80-95)
[2024-07-06 09:34] LABS: ALT 48 U/L (14-59); AST 34 U/L (15-37); Albumin 3.2 g/dL (3.4-5.0); Alkaline Phosphatase 48 U/L (46-116); Anion Gap 5.6 mmol/L (3-11); BUN 38 mg/dL (7-18); Bilirubin, Total 0.9 mg/dL (0.2-1.0); CO2 36.4 mmol/L (21.0-32.0); CREATININE 1.3 mg/dL (0.55-1.02); Calcium 10.1 mg/dL (8.5-10.1); Chloride 100 mmol/L (98-107); Estimated GFR 44.79 (mL/min/1.73m2); Glucose 118 mg/dL (74-106); Magnesium 1.8 mg/dL (1.8-2.4); Potassium 3.4 mmol/L (3.5-5.1); Sodium 142 mmol/L (136-145); Total Protein 7.8 g/dL (6.4-8.2)
== END 2024-07-29 23:59 | disposition home or self-care (01) ==
LOC: INF 03:00
PROVIDERS: PCP Family Medicine; Visit Provider Internal Medicine Hematology
DX: C02.9 Malignant neoplasm of tongue, unspecified (principal)
CPT/HCPCS: 36591; 80053; 83735; 85025

== ENCOUNTER 2024-08-03 08:00 | Outpatient (CLI) | payer MEDICAID, SELFPAY | END 2024-08-03 08:01 | disposition home or self-care (01) | LOC: DI.CARD 08:01 | PROVIDERS: PCP Family Medicine; Visit Provider Registered Nurse | DX: I47.10 Supraventricular tachycardia, unspecified (principal); I48.19 Other persistent atrial fibrillation | CPT/HCPCS: 93010 ==

== ENCOUNTER 2024-08-31 03:40 | Outpatient (RCR) | payer MEDICAID, SELFPAY ==
[2024-08-31 08:56] LABS: Abs Immature Grans 0.03 10^3/uL (0.0-0.06); Absolute Basophil Count 0.02 10^3/uL (0.0-0.2); Absolute Eosinophil Count 0.15 10^3/uL (0.0-0.7); Absolute Lymphocyte Count 0.85 10^3/uL (1.2-3.4); Absolute Monocyte Count 0.47 10^3/uL (0.1-0.8); Absolute Neutrophil Count 4.94 10^3/uL (1.2-6.7); Basophils % 0.3 %; Eosinophils % 2.3 %; HCT 37.3 % (36.0-46.0); Immature Grans % 0.5 %; Lymphocytes % 13.2 %; MCH 32.3 pg (27.0-33.0); MCHC 32.2 % (32.0-36.0); MCV 101 fL (80-95); MPV 10.3 fL (8.0-11.0); Monocytes % 7.3 %; Neutrophils % 76.4 %; Platelet Count 179 10^3/uL (130-400); RBC 3.71 10^6/uL (3.93-5.22); RDW 14.3 % (11.7-14.6); RDW-SD 52.6 fL; WBC 6.46 10^3/uL (4.4-10.8)
[2024-08-31] MEDS: Normal Saline Flush 10 ML SYR IVP (08:57)
[2024-08-31 09:10] LABS: ALT 20 U/L (14-59); AST 26 U/L (15-37); Albumin 3.5 g/dL (3.4-5.0); Alkaline Phosphatase 60 U/L (46-116); Anion Gap 8.3 mmol/L (3-11); BUN 43 mg/dL (7-18); Bilirubin, Total 0.6 mg/dL (0.2-1.0); CO2 30.7 mmol/L (21.0-32.0); CREATININE 1.1 mg/dL (0.55-1.02); Calcium 9.8 mg/dL (8.5-10.1); Chloride 101 mmol/L (98-107); Estimated GFR 54.39 (mL/min/1.73m2); Glucose 118 mg/dL (74-106); Magnesium 1.3 mg/dL (1.8-2.4); Potassium 3.5 mmol/L (3.5-5.1); Sodium 140 mmol/L (136-145); Total Protein 8.2 g/dL (6.4-8.2)
== END 2024-09-28 23:59 | disposition home or self-care (01) ==
LOC: INF 03:40
PROVIDERS: PCP Family Medicine; Visit Provider Internal Medicine Hematology
DX: C02.9 Malignant neoplasm of tongue, unspecified (principal); C14.8 Malignant neoplasm of overlapping sites of lip, oral cavity and pharynx; Z45.2 Encounter for adjustment and management of vascular access device
CPT/HCPCS: 36591; 80053; 83735; 85025

== ENCOUNTER 2024-11-02 03:27 | Outpatient (CLI) | payer MEDICAID, SELFPAY ==
[2024-11-02 07:48] LABS: Abs Immature Grans 0.02 10^3/uL (0.0-0.06); HCT 36.4 % (36.0-46.0); HGB 11.2 g/dL (11.2-15.7); Immature Grans % 0.4 %; MCH 31.5 pg (27.0-33.0); MCHC 30.8 % (32.0-36.0); MCV 102 fL (80-95); MPV 9.1 fL (8.0-11.0); Platelet Count 159 10^3/uL (130-400); RBC 3.56 10^6/uL (3.93-5.22); RDW 14.6 % (11.7-14.6); RDW-SD 55.8 fL; WBC 4.69 10^3/uL (4.4-10.8)
[2024-11-02 08:11] LABS: ALT 13 U/L (14-59); AST 17 U/L (15-37); Albumin 3.4 g/dL (3.4-5.0); Alkaline Phosphatase 53 U/L (46-116); Anion Gap 3.3 mmol/L (3-11); BUN 40 mg/dL (7-18); Bilirubin, Total 0.8 mg/dL (0.2-1.0); CO2 35.7 mmol/L (21.0-32.0); Calcium 9.5 mg/dL (8.5-10.1); Chloride 99 mmol/L (98-107); Estimated GFR 34.70 (mL/min/1.73m2); Glucose 110 mg/dL (74-106); Magnesium 2.4 mg/dL (1.8-2.4); Potassium 4.4 mmol/L (3.5-5.1); Sodium 138 mmol/L (136-145); Total Protein 8.0 g/dL (6.4-8.2)
[2024-11-02 08:16] LABS: Calculated LDL 139 mg/dL (<100); Cholesterol 209 mg/dL (<200); HDL Cholesterol 50 mg/dL (>or=50); Triglyceride 103 mg/dL (<150)
== END 2024-11-02 03:28 | disposition home or self-care (01) ==
LOC: LBO 03:27
PROVIDERS: Nurse Practitioner Family; PCP Family Medicine; Visit Provider Internal Medicine Hematology
DX: C02.9 Malignant neoplasm of tongue, unspecified (principal); I50.9 Heart failure, unspecified
CPT/HCPCS: 36415; 80053; 80061; 83735; 85025

== ENCOUNTER 2024-12-14 07:59 | Outpatient (CLI) | payer MEDICAID, SELFPAY ==
--- NOTE | 2024-12-14 07:45 | RT.EKG_ITS ---
APPROVED REPORT Exam: Resting ECG Reason for Exam: afib Patient Location: O HR:147 bpm ECG Measurements Heart Rate 147 AXIS NC [id number] P [id number] QRSd 115 QRS 96 QT 383 T -15 QTc 600 Conclusion Atrial fibrillation...V-rate 66-195, irreg A-activity Paired ventricular premature complexes...sequence of 2 V complexes Nonspecific intraventricular conduction delay...QRSd >115mS, not LBBB/RBBB Low voltage, precordial leads...precordial leads <1.0mV
== END 2024-12-14 08:00 | disposition home or self-care (01) ==
LOC: DI.CARD 08:00
PROVIDERS: PCP Family Medicine; Visit Provider Registered Nurse
DX: I47.10 Supraventricular tachycardia, unspecified (principal); I48.19 Other persistent atrial fibrillation; R06.09 Other forms of dyspnea
CPT/HCPCS: 93010